=== PATIENT | female | born 1935 | race Caucasian/White ===

== ENCOUNTER 2020-10-04 06:00 | Inpatient (IN) ==
[2020-10-04] MEDS ORDERED: PIPERACILL/TAZOBAC CONSULT ACTIVE PRN (06:36)
[2020-10-04] MEDS ORDERED: PIPERACILLIN/TAZOBACTAM 4.5 GM/120 ML BAG IV ONE (06:36)
[2020-10-04] MEDS ORDERED: SODIUM CHLORIDE 0.9% 500 ML IV SCH (06:45)
[2020-10-04 06:49] LABS: Basophils # (auto) 0.02 K/uL (0-0.2); Basophils % (auto) 0.2 %; Eosinophils # (auto) 0.34 K/uL (0-0.5); Eosinophils % (auto) 3.7 %; Hematocrit (blood only) 47.6 % (37-47); Immature Granulocytes # (auto) 0.02 K/uL (0.00-0.02); Immature Granulocytes % (auto) 0.2 %; Lymphocytes # (auto) 1.56 K/uL (1.2-3.4); Lymphocytes % (auto) 17.1 %; Mean Corpuscular Hemoglobin 32.8 pg (25-34); Mean Corpuscular Hgb Conc 33.6 g/dL (32-36); Mean Corpuscular Volume 97.5 fL (80-100); Mean Platelet Volume 11.2 fL (7.4-10.4); Monocytes # (auto) 1.37 K/uL (0.11-0.59); Neutrophils % (auto) 63.8 %; Platelet Count 280 K/uL (130-400); RDW Coefficient of Variation 14.2 % (11.5-14.5); RDW Standard Deviation 50.8 fL (36.4-46.3); Red Blood Count 4.88 M/uL (4.2-5.4); White Blood Count 9.11 K/uL (4.8-10.8)
[2020-10-04 07:06] LABS: Albumin Level 3.7 gm/dl (3.4-5.0); BUN Creatinine Ratio 22.1 (10-20); Calcium 9.8 mg/dl (8.5-10.1); Creatinine Clr Calc Pharmacy 55.9 ml/min; Est GFR (African American) 72.9; Est GFR (Non-African American) 62.9; Potassium 4.7 mmol/L (3.5-5.1)
--- NOTE | 2020-10-04 07:11 | Emergency Department Note ---
History of Present Illness General Chief complaint: Fall Stated complaint: SLIPPED /FELL LT. SHOULDER PAIN Time Seen by Provider: 10/04/20 06:27 Source: patient Mode of arrival: EMS Limitations: no limitations History of Present Illness Provider complaint: Generalized weakness and falls This is a 85-year-old female with a chronic history of A. fib and is on Coumadin who presents to the ED from home where she lives with family. She is typically from [facility] but is currently living with her daughter. She has been falling frequently and her right leg is red and appears infected. The patient denies any injury related to her falls but she does have generalized weakness. She denies any headaches, chest pains or shortness of breath. No abdominal pains, nausea or vomiting. Past Med/Surg History Social History Smoking Status: Former smoker Tobacco Type: Cigarettes Preferred Language: Portuguese Review of Systems A total of 10 systems reviewed and were otherwise negative Physical Exam Vital Signs Vital Signs - 24 hr 10/04/20 06:07 10/04/20 06:11 10/04/20 06:30 Temperature 36.4 C L Temperature Source Oral Pulse Rate 61 60 83 Pulse Rate from SpO2 Sensor 66 61 72 Respiratory Rate 23 23 20 Respiratory Effort / Characteristics Non-Labored Spontaneous Respiratory Depth Normal Blood Pressure 181/67 H Blood Pressure Mean 105 Pulse Oximetry 97 96 96 Oxygen Delivery Method Room Air Sepsis New/Unexplained Change in Mental Status N/A Sepsis Action Taken by Nursing No Action Required 10/04/20 06:31 10/04/20 07:00 10/04/20 07:14 Temperature Temperature Source Pulse Rate 70 69 70 Pulse Rate from SpO2 Sensor 66 63 Respiratory Rate 23 17 23 Respiratory Effort / Characteristics Respiratory Depth Blood Pressure 179/77 H 158/74 H Blood Pressure Mean 111 102 Pulse Oximetry 93 96 93 Oxygen Delivery Method Sepsis New/Unexplained Change in Mental Status Sepsis Action Taken by Nursing 10/04/20 07:15 10/04/20 07:30 10/04/20 07:31 Temperature Temperature Source Pulse Rate 65 71 65 Pulse Rate from SpO2 Sensor 63 69 67 Respiratory Rate 15 20 20 Respiratory Effort / Characteristics Respiratory Depth Blood Pressure Blood Pressure Mean Pulse Oximetry 90 96 98 Oxygen Delivery Method Sepsis New/Unexplained Change in Mental Status Sepsis Action Taken by Nursing CONSTITUTIONAL/VITAL SIGNS: Reviewed / noted above. GENERAL: Non-toxic in appearance. INTEGUMENTARY: Warm, dry, and [place]. HEAD: Normocephalic. EYES: without scleral icterus or trauma. ENT/OROPHARYNX: clear and moist. LYMPHADENOPATHY/NECK: Is supple without lymphadenopathy or meningismus. RESPIRATORY: Lungs clear and equal. CARDIOVASCULAR: Regular rate and rhythm. GI/ABDOMEN: Soft and nontender. No organomegaly or pulsatile mass. No rebound or guarding. Normal bowel sounds. EXTREMITIES: Warm and well perfused. The patient has erythema to the right leg with some small pus filled bullae some of which are broken open. 1 of these was used for a wound culture. BACK: No CVA tenderness. No midline tenderness. NEUROLOGICAL: Intact without focal deficits. PSYCHIATRIC: normal affect. MUSCULOSKELETAL: Normally developed with good muscle tone. No obvious trauma. TRIAGE NURSING DOCUMENTATION REVIEWED. Course Administered Medications Discontinued Medications Sodium Chloride (Nss) 500 mls @ 999 mls/hr IV .Q31M TRICIA Stop: 10/04/20 07:15 Last Infusion: 10/04/20 07:36 Dose: 0 mls/hr Documented by: [id number] Admin: 10/04/20 06:59 Dose: 999 mls/hr Documented by: [id number] Piperacillin Sod/Tazobactam Sod (Zosyn) 4.5 gm in 120 mls @ 240 mls/hr IV NOW ONE Stop: 10/04/20 07:05 Last Admin: 10/04/20 07:12 Dose: 240 mls/hr Documented by: [id number] Medical Decision Making Differential Diagnosis Differential includes acute coronary syndrome, myocardial infarction, CVA, TIA, anemia, infection, pneumonia, UTI, pyelonephritis, poor nutrition, dehydration, electrolyte disturbance,hypoglycemia. Differential includes close head injury, intracranial bleed, facial trauma, cervical spine trauma, chest and thoracic trauma, abdominal and intra-abdominal trauma, spine neurologic trauma, extremity trauma. Medical Records Attestation: I reviewed the patient's medical records. Home Medications Current Medication List: was personally reviewed by me Laboratory Data Attestation: I reviewed the patient's lab results. Result diagrams: 10/04/20 06:30 10/04/20 06:30 Lab Results 10/04/20 10/04/20 10/04/20 Range/Units 06:30 06:30 07:00 WBC 9.11 (4.8-10.8) K/uL RBC 4.88 (4.2-5.4) M/uL Hgb 16.0 (12.0-16.0) g/dL Hct 47.6 H (37-47) % MCV 97.5 (80-100) fL MCH 32.8 (25-34) pg MCHC 33.6 (32-36) g/dL RDW Std Deviation 50.8 H (36.4-46.3) fL RDW Coeff of Merly 14.2 (11.5-14.5) % Plt Count 280 (130-400) K/uL MPV 11.2 H (7.4-10.4) fL Immature Gran % (Auto) 0.2 % Neut % (Auto) 63.8 % Lymph % (Auto) 17.1 % Dorado % (Auto) 15.0 % Eos % (Auto) 3.7 % Baso % (Auto) 0.2 % Neut # (Auto) 5.80 (1.4-6.5) K/uL Lymph # (Auto) 1.56 (1.2-3.4) K/uL [place] # (Auto) 1.37 H (0.11-0.59) K/uL Eos # (Auto) 0.34 (0-0.5) K/uL Baso # (Auto) 0.02 (0-0.2) K/uL Immature Gran # (Auto) 0.02 (0.00-0.02) K/uL Sodium 141 (136-145) mmol/L Potassium 4.7 (3.5-5.1) mmol/L Chloride 106 (98-107) mmol/L Carbon Dioxide 32 (21-32) mmol/L Anion Gap 3.0 (3-11) BUN 19 H (7-18) mg/dl Creatinine 0.84 (0.6-1.2) mg/dl Est Cr Clr Drug Dosing 55.9 ml/min Est GFR ( Amer) 72.9 Est GFR (Non-Af Amer) 62.9 BUN/Creatinine Ratio 22.1 H (10-20) Glucose 94 (70-99) mg/dl Lactate 2.6 H* (0.4-2.0) mmol/L Calcium 9.8 (8.5-10.1) mg/dl Total Bilirubin 1.1 H (0.2-1) mg/dl AST 38 H (15-37) U/L ALT 33 (12-78) U/L Alkaline Phosphatase 119 H (45-117) U/L Total Protein 7.9 (6.4-8.2) gm/dl Albumin 3.7 (3.4-5.0) gm/dl Globulin 4.2 H (2.5-4.0) gm/dl Albumin/Globulin Ratio 0.9 (0.9-2) TSH 2.680 (0.300-4.500) uIu/ml Imaging Data Radiologist's Impression: XR chest 1V portable CLINICAL HISTORY: weakness COMPARISON STUDY: No previous studies for comparison. FINDINGS: The heart is enlarged. There are calcified bilateral breast implants. There is no overt failure. There is no focal pulmonary consolidation. There are no pleural effusions. There is minor interstitial thickening likely chronic.[ IMPRESSION: Cardiomegaly. No evidence of failure. No evidence of focal pulmonary consolidation ECG Data Attestation: I personally reviewed and interpreted this ECG as follows: Indication: + weakness Rhythm: + atrial fibrillation ECG Intervals/blocks: + Normal QT-c ECG ST segments: no ST elevation ECG Findings: no PVCs MDM Narrative This is an 85-year-old female who presents to the ED with a chief complaint of generalized weakness and frequent falls recently. No injuries related to fall. Family noticed redness in the right leg. Patient denies any other specific complaints. She does have erythema as well as some pus filled bullae in the right lower extremity. The rest of her exam is unremarkable. Blood pressure was elevated. She is currently afebrile. Her CBC was unremarkable. Chemistry panel is unremarkable. TSH was normal. Chest x-ray did not show acute process. EKG shows A. fib. This is chronic. No old EKG for comparison. The patient was given IV Zosyn. She was given some IV fluids. She will be seen by the hospitalist for further evaluation and care. Impression & Plan Cellulitis of leg, right, Weakness Discharge Plan Visit Data Chief Complaint: Fall Stated Complaint: SLIPPED /FELL LT. SHOULDER PAIN ED Provider: Felipe Martinez Discharge Problem: Cellulitis of leg, right, Weakness Patient Disposition: Being Evaluated by Hospitalist Forms Stand Alone Forms: [facility] Referrals Referrals: PCP,NO [Primary Care Provider] -
[2020-10-04 07:16] LABS: Albumin Globulin Ratio 0.9 (0.9-2); Bilirubin,Total 1.1 mg/dl (0.2-1); Globulin 4.2 gm/dl (2.5-4.0); Thyroid Stimulating Hormone 2.68 uIu/ml (0.300-4.500); Total Protein 7.9 gm/dl (6.4-8.2)
--- NOTE | 2020-10-04 07:34 | XRay Report ---
XR chest 1V portable CLINICAL HISTORY: weakness COMPARISON STUDY: No previous studies for comparison. FINDINGS: The heart is enlarged. There are calcified bilateral breast implants. There is no overt blake lure. There is no focal pulmonary consolidation. There are no pleural effusions. There is minor inter stitial thickening likely chronic.[ IMPRESSION: Cardiomegaly. No evidence of failure. No evidence of focal pulmonary consolidation ACT 112: Negative or not required by law. Electronically signed by: Mynor Peterson M.D. 10/04/2020 7:32 AM
[2020-10-04 08:28] LABS: Partial Thromboplastin Ratio 1.2; Partial Thromboplastin Time 31.4 Seconds (21.0-31.0); Prothrombin Time 19.3 Seconds (9.0-12.0)
[2020-10-04] MEDS ORDERED: FUROSEMIDE 40 MG/4 ML VIAL IV SCH (10:18)
[2020-10-04] MEDS ORDERED: VANCOMYCIN CONSULT ACTIVE PRN (10:18)
[2020-10-04] MEDS ORDERED: ACETAMINOPHEN 325 MG TAB PO PRN (10:18)
[2020-10-04] MEDS ORDERED: ONDANSETRON INJ 2 MG/ML 2 ML VIAL IV PRN (10:18)
[2020-10-04] MEDS: FUROSEMIDE 40 MG in SYRINGE 0 ML IV SCH ×2 (10:59→16:16)
[2020-10-04] MEDS ORDERED: VANCOMYCIN HCL 2,500 MG in SODIUM CHLORIDE 0.9% 500 ML IV ONE (11:00)
--- NOTE | 2020-10-04 11:16 | Pharmacy Report ---
Pharmacy Abx Initial Consult - Date of Service October 04, 2020 - Pharmacy Dosing Scope Date of Consult: 10/04/20 Consultation requested by: Dr. Tony Copeland Pharmacy is consulted to initiate Vancomycin IV dosing therapy, order appropriate labs and adjust drug dose/frequency. - Subjective The patient is a 85 year old F admitted on 10/04/20 08:24. - Objective Height: 5 ft 3 in Weight: 105.6 kg Vital Signs (Past 12hrs): Vital Signs Temp Pulse Pulse Resp BP BP Pulse Ox 10/04/20 10:48 60 10/04/20 10:18 36.3 C L 69 20 149/71 H 97 10/04/20 09:30 67 19 95 10/04/20 09:02 56 L 17 90 10/04/20 09:01 55 L 22 156/54 H 95 10/04/20 09:00 58 L 21 95 10/04/20 08:31 61 14 98 10/04/20 08:30 60 20 147/77 H 91 10/04/20 08:02 64 22 95 10/04/20 08:01 61 18 124/55 L 93 10/04/20 08:00 60 13 95 10/04/20 07:32 63 16 92 10/04/20 07:31 65 20 98 10/04/20 07:30 71 20 96 10/04/20 07:15 65 15 90 10/04/20 07:14 70 23 158/74 H 93 10/04/20 07:00 69 17 96 10/04/20 06:31 70 23 179/77 H 93 10/04/20 06:30 83 20 96 10/04/20 06:11 60 23 96 10/04/20 06:07 36.4 C L 61 23 181/67 H 97 Lab Results (24hrs): Laboratory Tests (24 Hours) 10/04/20 10/04/20 06:30 06:30 WBC 9.11 Neut # (Auto) 5.80 Creatinine 0.84 Est Cr Clr Drug Dosing 55.9 Micro Results: 10/04/20 06:30 Gram Stain - Pending Leg,Right Wound Culture - Pending 10/04/20 06:53 Aerobic Blood Culture - Pending Blood Anaerobic Blood Culture - Pending 10/04/20 06:30 Aerobic Blood Culture - Pending Blood Anaerobic Blood Culture - Pending - Assessment & Plan Assessment 85 year old F initiated on IV Vancomycin for SST secondary to fall Pt does not meet criteria for AUC dosing nomogram based on weight/obesity. Will dose based on traditional population based PK and titrate based on trough levels Plan Vancomycin IV * Estimated PK Parameters: Vd 0.5 L/kg, Jarvis 0.051 hr-1, t1/2 13.6 hr * Loading dose: 2,500 mg (24 mg/kg) * Maintenance dose: 1,500 mg IV (15 mg/kg) every 18 hours * Goal trough level for SST : 10 to 20 mcg/mL based on c/s * Trough level ordered for 10/06/20 @ 1530 (prior to 3rd maintenance dose). This will NOT be steady state based on large BMI secondary to obesity. Further vanco accumulation likely with repeated dosing. Pharmacy will continue to follow and will adjust dose/frequency as necessary. Thank you.
--- NOTE | 2020-10-04 12:37 | History & Physical Report ---
Date of Service October 04, 2020 Assessment & Plan (1) Cellulitis of leg, right: Right lower extremity, likely due to edema. - Vancomycin - Follow skin & blood cultures from 10/04 - Wound consult entered (2) Acute heart failure: Unclear whether this is diastolic vs. systolic as we do not have an echo in the charts. - Continue furosemide 40 mg IV BID - Monitor Cr - Monitor I&Os, [facility] (3) Atrial fibrillation: Presumed permanent. In afib on admission with controlled rate. - Continue beta-richard and digoxin - Will get digoxin level with AM labs - Continue warfarin - Monitor INR (4) Hypertension: BP in the hospital is 150/70. - Continue home meds (5) Hypothyroidism: TSH was 2.6 on admission. - Continue home levothyroxine 150 mcg daily (6) Hyperlipidemia: - Continue statin (7) DVT prophylaxis: On warfarin for afib Admission and Anticipated Discharge Date Admission Date: October 04, 2020 History of Present Illness Primary Care Provider: NO PCP 85yo F w/ hx of afib, CHF and/or lymphedema, hypothyroidism, who presents with worsening leg edema and falls at home as well as cellulitis. The patient's daughter reports much of the history, though the patient is awake, alert, and pleasant & conversant. The daughter reports that the patient used to go to a lymphedema specialist who would help reduce the swelling in her legs. However, more recently, she has been unable to go due to the pandemic. Her legs have been increasingly swollen and she has had several mechanical falls in the last few days. She reports to her daughter that she feels like she just can't move her legs well. To me, she also reports orthopnea, though no at rest shortness of breath in bed at present. She denies any fevers or chills at home. No nausea or vomiting. Allergies Allergy/AdvReac Type Severity Reaction Status Date / Time No Known Allergies Allergy Unverified 10/04/20 08:24 Home Medications Medication Instructions Recorded Confirmed Type atenolol 50 mg PO BID 10/04/20 10/04/20 History digoxin 125 mcg PO DAILY 10/04/20 10/04/20 History furosemide 40 mg PO DAILY PRN 10/04/20 10/04/20 History levothyroxine 150 mcg PO DAILY 10/04/20 10/04/20 History losartan 100 mg PO DAILY 10/04/20 10/04/20 History potassium chloride 20 meq PO DAILY 10/04/20 10/04/20 History pravastatin 40 mg PO HS 10/04/20 10/04/20 History warfarin 2.5 mg PO [id number] 10/04/20 10/04/20 History Past Med/Surg History Medical History (Updated 10/04/20 @ 12:50 by Taran Copeland MD) Atrial fibrillation Heart failure Hyperlipidemia Hypertension Hypothyroidism Surgical History (Updated 10/04/20 @ 12:44 by Taran Copeland MD) H/O: hysterectomy Family History (Updated 10/04/20 @ 12:44 by Taran Copeland MD) Other Heart disease Stroke Social History Smoking Status: Former smoker Tobacco Type: Cigarettes Hx Alcohol Use: Yes Hx Substance Use: No Preferred Language: Haitian Communication Ability: Effective 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 Beliefs That Will Affect Care: None Current Living Situation: Family Other Information That Helps Us Care for You: No Feels Safe at Home: Yes Safety Concerns: Feels Safe At This Time Assistive Devices: None Review of Systems Review of Systems: All systems reviewed & are unremarkable except as noted in HPI & below Physical Exam Constitutional: WD/WN, vitals as above + acute distress and + overweight Eyes: EOM intact bilaterally; no conjunctival abnormality ENMT: external ear and nose normal, oropharynx normal Neck: trachea midline, no thyromegaly normal visual inspection Respiratory: no respiratory distress Auscultation: + crackles Cardiovascular: Rate/Rhythm: regular rate and + irregularly irregular Heart Sounds: normal S1 and normal S2 Vessels: no JVD Extremities: + edema Gastrointestinal (Abdomen): Inspection/Auscultation: abdomen normal to inspection; abdomen not distended Musculoskeletal: no cyanosis or clubbing, extremities motor strength 5/5 Skin: no rashes, warm and dry Neurologic: moves all extremities and awake Psychiatric: Orientation: alert, oriented to person and cooperative Results & Data Results & Data ([facility]) Vital Signs (Past 12 Hours) Vital Signs Temp Pulse Pulse Resp BP BP Pulse Ox 10/04/20 10:48 60 10/04/20 10:18 36.3 C L 69 20 149/71 H 97 10/04/20 09:30 67 19 95 10/04/20 09:02 56 L 17 90 10/04/20 09:01 55 L 22 156/54 H 95 10/04/20 09:00 58 L 21 95 10/04/20 08:31 61 14 98 10/04/20 08:30 60 20 147/77 H 91 10/04/20 08:02 64 22 95 10/04/20 08:01 61 18 124/55 L 93 10/04/20 08:00 60 13 95 10/04/20 07:32 63 16 92 10/04/20 07:31 65 20 98 10/04/20 07:30 71 20 96 10/04/20 07:15 65 15 90 10/04/20 07:14 70 23 158/74 H 93 10/04/20 07:00 69 17 96 10/04/20 06:31 70 23 179/77 H 93 10/04/20 06:30 83 20 96 10/04/20 06:11 60 23 96 10/04/20 06:07 36.4 C L 61 23 181/67 H 97 Code Status & VTE Plan VTE Prophylaxis Plan VTE Prophylaxis will be ordered: Yes PG Care Time/CCT Total # of Minutes Spent Total Time Spent with Patient: Total time spent is greater than 50% in coordination of care (as documented) at patient's floor/unit and/or counseling patient: Coding Level of Care Code 65131 Initial Inpt Care Lvl 3 Diagnoses Cellulitis of leg, right L03.115 Acute heart failure I50.9 Atrial fibrillation I48.91 Hypertension I10 Hypothyroidism E03.9 Hyperlipidemia E78.5 DVT prophylaxis Z29.9
[2020-10-04] MEDS: WARFARIN SOD 2.5 MG TAB PO SCH (16:04)
[2020-10-04] MEDS ORDERED: LORazepam 0.5 MG TAB PO STA (21:33)
[2020-10-04] MEDS: ATENOLOL 50 MG TABLET PO SCH (22:17)
[2020-10-04] MEDS: PRAVASTATIN SOD 40 MG TAB PO SCH (22:17)
[2020-10-05] MEDS: VANCOMYCIN HCL 1,500 MG in SODIUM CHLORIDE 0.9% 500 ML IV SCH ×3 (03:20→06:25)
[2020-10-05] MEDS ORDERED: LORazepam 1 MG TAB PO STA (04:04)
[2020-10-05] MEDS ORDERED: HALOPERIDOL LACTATE 5 MG/ML 1 ML VIAL IM PRN (04:06)
--- NOTE | 2020-10-05 05:35 | Electrocardiogram Report ---
Test Reason : Blood Pressure : / mmHG Vent. Rate : 058 BPM Atrial Rate : 045 BPM P-R Int : 000 ms QRS Dur : 080 ms QT Int : 426 ms P-R-T Axes : 000 001 004 degrees QTc Int : 418 ms Poor data quality, interpretation may be adversely affected Atrial fibrillation with slow ventricular response Possible Inferior infarct , age undetermined Possible Anterior infarct , age undetermined Abnormal ECG No previous ECGs available Confirmed by Laith Dietz ([id number]) on 10/05/2020 5:34:57 AM Referred By: Confirmed By:Laith Dietz
[2020-10-05] MEDS: LEVOTHYROXINE SODIUM 150 MCG TABLET PO SCH (05:37)
--- NOTE | 2020-10-05 05:40 | Communication Note ---
Date of Service: October 05, 2020 Subjective: I was called earlier in the night for the patient having agitation and she took 0.5 mg of Ativan which seemed to help initially. Early this morning I was called again because the patient had worsening agitation and had pulled her IV and wanted to leave the hospital. Objective: I went up to evaluate the patient and she was in the luo talking to the nurses and aids. When I spoke with her she explained that she did not want to stay here and was concerned that she was being used as a weapon and that I would, "pay for what I did when I ". She was not aggressive physically and could be redirected. A/P: I put in for 1-1, 1 mg Ativan, and made Haldol 2.5 available PRN once for agitation. The patients daughter was going to come to see her to help with reorientation and to calm her down. This appears to be delirium likely 2/2 illness, hospitalization, age and medications.
[2020-10-05 06:55] LABS: Hematocrit (blood only) 41.8 % (37-47); Mean Corpuscular Hemoglobin 32.4 pg (25-34); Mean Corpuscular Hgb Conc 33.5 g/dL (32-36); Mean Corpuscular Volume 96.8 fL (80-100); Mean Platelet Volume 11.1 fL (7.4-10.4); Platelet Count 232 K/uL (130-400); RDW Coefficient of Variation 14.3 % (11.5-14.5); RDW Standard Deviation 51.4 fL (36.4-46.3); Red Blood Count 4.32 M/uL (4.2-5.4); White Blood Count 6.43 K/uL (4.8-10.8)
[2020-10-05 07:16] LABS: BUN Creatinine Ratio 23.1 (10-20); Creatinine Clr Calc Pharmacy 46.5 ml/min; Est GFR (African American) 58.4; Est GFR (Non-African American) 50.4; Magnesium 2.1 mg/dl (1.8-2.4); Potassium 3.5 mmol/L (3.5-5.1)
[2020-10-05] MEDS ORDERED: DIGOXIN 0.125 MG TAB PO SCH (09:00)
[2020-10-05] MEDS ORDERED: POTASSIUM CHLORIDE CRTAB 20 MEQ TABCR PO SCH (09:00)
--- NOTE | 2020-10-05 09:24 | Cardiology Consultation ---
Date of Consultation October 05, 2020 Assessment & Plan (1) Cellulitis of leg, right: (2) Heart failure: (3) Atrial fibrillation: (4) Hypertension: (5) Hyperlipidemia: Volume overload. Congestive heart failure. Presumed right heart failure secondary to suspected obesity hypoventilation/sleep apnea. Assess function and valvular status via resting echocardiography (ordered). Continue cautious IV diuresis. Supplement potassium orally as ordered. Change to evidence based beta- richard therapy (See below). Obtain prior records. Atrial fibrillation. Presumed chronic/permanent. Asymptomatic. Recommend rate control. Recommend changing Atenolol to Toprol XL. Continue digoxin for now ho wever if heart rates remain slow would discontinue. She is a questionable candidate for chronic anticoagulation at the present time; would continue for now and discuss with family when available and/or when cognitive status improves. Hypertension. Labile BP noted since admission. Continue losartan. See above. Follow. Dyslipidemia. Continue statin. Supervising Physician Co-Signing Physician Notes Patient seen and examined with Eleazar Allen PA-C. Agree with findings and assessment as above. Appears to have longstanding atrial fibrillation. Unclear at this time whether or not she is an anticoagulation candidate. Medication adjustments as above. History of Present Illness Reason for Consultation: Congestive heart failure Requesting Physician: Dr. Taran Copeland Attending Physician: Dr. Taran Copeland History of Present Illness Ms. Lisseth Renae is an 85 year old female who is being evaluated today, 10/05/2020, at the request of Dr. Taran Copeland. Reason for consultation is congestive heart failure. The patient does not appear to be a reliable source of information. She is living with her daughter. She reportedly has been living in [place], [place] and is originally from [place]. She was brought to the [facility] ER via EMS following a mechanical fall with resultant left shoulder pain. She has had frequent falls. Her right (more than left) lower extremity was notably swollen and red, without reported pain. She denies fevers or chills. She has healing ecchymosis on her face though denies injury, headache, visual changes, unilateral weakness. She denies history of congestive heart failure. She denies history of MD, CAD, heart murmur, rheumatic fever, or scarlet fever. She denies chest pain, palpitations, or dyspnea. She denies melena or hematochezia. Past Medical & Surgical History: Chronic atrial fibrillation. She is anticoagulated with Coumadin. Chart history of congestive heart failure Lymphedema Dyslipidemia Hypothyroidism Family History: Positive for CAD in her parents however she cannot give me any more details. Social History: Nonsmoker. No alcohol. No illegal drug use. Living with her daughter. Originally from [place]. Data: Telemetry: Atrial fibrillation ranging from 37 bpm to a high of 88 bpm. Heart rates typically in the 50's. EKG dated 24-SEP-2020 at 06:09:51: Poor data quality, interpretation may be adversely affected. Atrial fibrillation with slow ventricular response (58 bpm). Possible Inferior infarct. Possible Anterior infarct. CXR: Cardiomegaly. No evidence of failure. No significant pleural fluid. No evidence of focal pulmonary consolidation. Labs: See below. Allergies Allergy/AdvReac Type Severity Reaction Status Date / Time No Known Allergies Allergy Unverified 10/04/20 08:24 Home Medications Medication Instructions Recorded Confirmed Type atenolol 50 mg PO BID 10/04/20 10/04/20 History digoxin 125 mcg PO DAILY 10/04/20 10/04/20 History furosemide 40 mg PO DAILY PRN 10/04/20 10/04/20 History levothyroxine 150 mcg PO DAILY 10/04/20 10/04/20 History losartan 100 mg PO DAILY 10/04/20 10/04/20 History potassium chloride 20 meq PO DAILY 10/04/20 10/04/20 History pravastatin 40 mg PO HS 10/04/20 10/04/20 History warfarin 2.5 mg PO [id number] 10/04/20 10/04/20 History Patient History Medical History Atrial fibrillation Heart failure Hyperlipidemia Hypertension Hypothyroidism Surgical History H/O: hysterectomy Family History Other Heart disease Stroke Social History Smoking Status: Former smoker Tobacco Type: Cigarettes Hx Alcohol Use: Yes Hx Substance Use: No Preferred Language: Costa Rican Communication Ability: Effective 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 PER: PER. Conjunctiva pink, sclera clear. HENT: Healing ecchymosis around the right orbit. Normocephalic. Neck: No carotid bruits. No overt JVD. Heart: Irregularly irregular. Somewhat distant heart failure. PMI seems to be displaced laterally. No rub. No gallop. Lungs: Diiminished anterolaterally however clear to auscultation. Abdomen: +BS. Soft. Nontender. No masses or organomegaly. Extremities: The right lower extremity is erythematous. It has 2+ edema. No cyanosis. No clubbing. The left lower extremity has mild erythema. It has 1-2+ edema. No clubbing or cyanosis on the left. Pulses: radial=2/4, posterior tibial=0/4. Neuro: Alert to person but not to place or time. Results & Data ([facility]) Vital Signs (Past 12 Hours) Vital Signs Temp Pulse Pulse Resp BP Pulse Ox 10/05/20 07:50 36.7 C 57 L 16 148/78 H 100 10/05/20 04:28 82 10/04/20 23:38 36.9 C 72 20 118/70 92 (1) Heart failure Heart failure chronicity: acute Heart failure type: unspecified Qualified Code(s): I50.9 - Heart failure, unspecified (2) Atrial fibrillation Atrial fibrillation type: unspecified chronic Qualified Code(s): I48.20 - Chronic atrial fibrillation, unspecified (3) Hyperlipidemia Hyperlipidemia type: mixed hyperlipidemia Qualified Code(s): E78.2 - Mixed hyperlipidemia (4) Hypertension Hypertension type: essential hypertension Qualified Code(s): I10 - Essential (primary) hypertension
[2020-10-05] MEDS ORDERED: POTASSIUM CHLORIDE CRTAB 20 MEQ TABCR PO ONE (09:25)
[2020-10-05] MEDS: FUROSEMIDE 40 MG in SYRINGE 0 ML IV SCH ×2 (09:54→16:33)
[2020-10-05] MEDS: LOSARTAN POTASSIUM 50 MG TAB PO SCH (09:54)
[2020-10-05] MEDS: ATENOLOL 50 MG TABLET PO SCH (09:54)
--- NOTE | 2020-10-05 10:54 | Hospitalist Progress Note ---
Date of Service October 05, 2020 Assessment & Plan (1) Cellulitis of leg, right: Right lower extremity, likely due to edema. - Vancomycin - Follow skin & blood cultures from 10/04 -> Skin (pustule) culture growing Group B Strep. Will continue vanc x 1 more day, but then possibly switch to Ke flex if no other cultures positive. - Wound consult entered (2) Acute heart failure: Unclear whether this is diastolic vs. systolic as we do not have an echo in the charts. - Continue furosemide 40 mg IV BID - Monitor Cr -> Up slightly today; monitor. - Monitor I&Os, weights -> Looks to be net even from her vanc IV and PO intake from yesterday. If no improvement today, will increase dose of Lasix. - [facility] cardiology consulted for further recs -> Echo ordered for today. (3) Atrial fibrillation: Presumed chronic afib. In afib on admission with controlled rate. - Has been bradycardic while here. - Switch atenolol to Toprol XL per cardiology recs - Hold digoxin - Continue warfarin - Monitor INR (4) Hypertension: BP in the hospital is 150/70. - Continue home meds (5) Hypothyroidism: TSH was 2.6 on admission. - Continue home levothyroxine 150 mcg daily (6) Hyperlipidemia: - Continue statin (7) DVT prophylaxis: On warfarin for afib Admission and Anticipated Discharge Date Admission Date: October 04, 2020 Subjective Difficult night with lots of agitation and confusion. This morning, more tired. Breathing more comfortably. Legs are no less swollen than yesterday. Reports no fevers/chills, chest pain, shortness of breath, abdominal pain, nausea, or vomiting. Physical Exam Constitutional: WD/WN, vitals as above + acute distress and + overweight Eyes: EOM intact bilaterally; no conjunctival abnormality ENMT: external ear and nose normal, oropharynx normal Neck: trachea midline, no thyromegaly normal visual inspection Respiratory: no respiratory distress Auscultation: + crackles Cardiovascular: Rate/Rhythm: regular rate and + irregularly irregular Heart Sounds: normal S1 and normal S2 Vessels: no JVD Extremities: + edema Gastrointestinal (Abdomen): Inspection/Auscultation: abdomen normal to inspection; abdomen not distended Musculoskeletal: no cyanosis or clubbing, extremities motor strength 5/5 Skin: no rashes, warm and dry + induration (Right crenshaw with pustules); no fluctulance Neurologic: moves all extremities and awake Psychiatric: Orientation: alert, oriented to person and cooperative Results & Data Results & Data ([facility]) Vital Signs (Past 12 Hours) Vital Signs Temp Pulse Pulse Resp BP Pulse Ox 10/05/20 07:50 36.7 C 57 L 16 148/78 H 100 10/05/20 04:28 82 10/04/20 23:38 36.9 C 72 20 118/70 92 PG Care Time/CCT Total # of Minutes Spent Total Time Spent with Patient: Total time spent is greater than 50% in coordination of care (as documented) at patient's floor/unit and/or counseling patient: Coding Level of Care Code 73430 Subseq Hosp Care Lvl 2 Diagnoses Cellulitis of leg, right L03.115 Acute heart failure I50.9 Atrial fibrillation I48.20 Atrial fibrillation type: unspecified chronic Hypertension I10 Hypertension type: essential hypertension Hypothyroidism E03.9 Hyperlipidemia E78.2 Hyperlipidemia type: mixed hyperlipidemia DVT prophylaxis Z29.9 (1) Atrial fibrillation Atrial fibrillation type: unspecified chronic Qualified Code(s): I48.20 - Chronic atrial fibrillation, unspecified (2) Hypertension Hypertension type: essential hypertension Qualified Code(s): I10 - Essential (primary) hypertension (3) Hyperlipidemia Hyperlipidemia type: mixed hyperlipidemia Qualified Code(s): E78.2 - Mixed hyperlipidemia
[2020-10-05] MEDS: WARFARIN SOD 2.5 MG TAB PO SCH (16:33)
[2020-10-05] MEDS: POTASSIUM CHLORIDE CRTAB 20 MEQ TABCR PO SCH (20:10)
[2020-10-05] MEDS: PRAVASTATIN SOD 40 MG TAB PO SCH (20:10)
[2020-10-05] MEDS ORDERED: METOPROLOL SUCC 50MG EXT REL TAB PO SCH (21:00)
[2020-10-06] MEDS ORDERED: LORazepam 1 MG/2 ML VIAL IV PRN (00:08)
[2020-10-06] MEDS ORDERED: HALOPERIDOL LACTATE 5 MG/ML 1 ML VIAL IM PRN (00:08)
[2020-10-06] MEDS ORDERED: HALOPERIDOL LACTATE 5 MG/ML 1 ML VIAL ONE (00:10)
--- NOTE | 2020-10-06 02:42 | Communication Note ---
Date of Service: October 06, 2020 Nursing paged around 10-11 pm that the patient was again agitated and threatening staff. I went to the room, patient did not remember me from the night before. She was frustrated and despite multiple efforts to redirect her she continued to threaten to hit me. She did not have any specific complaint or issue that we could work to address. I ordered Haldol 2.5 mg and Ativan 1 mg as PRN medications. The patient again was agitated and barricaded herself in her room but was redirected to her bed and appeared to have calmed down after receiving Haldol. If she becomes agitated again we will attempt to notify the daughter to help to redirect the patient if necessary. Resident Activity Tracking Resident Involvement: Resident Care Provided Care Provided: Adult [facility] Medicine CBC Results Results Complete Blood Count Results: RBC 4.32 M/uL (4.2-5.4) 10/05/20 WBC 6.43 K/uL (4.8-10.8) 10/05/20 Hgb 14.0 g/dL (12.0-16.0) 10/05/20 Hct 41.8 % (37-47) 10/05/20 Plt Count 232 K/uL (130-400) 10/05/20 Chemistry (BMP) Results BMP Results: Sodium 145 mmol/L (136-145) 10/05/20 Potassium 3.5 mmol/L (3.5-5.1) 10/05/20 Chloride 108 mmol/L (98-107) H 10/05/20 BUN 23 mg/dl (7-18) H 10/05/20 Creatinine 1.01 mg/dl (0.6-1.2) 10/05/20 Glucose 89 mg/dl (70-99) 10/05/20
[2020-10-06] MEDS: VANCOMYCIN HCL 1,500 MG in SODIUM CHLORIDE 0.9% 500 ML IV SCH (03:27)
[2020-10-06] MEDS: LEVOTHYROXINE SODIUM 150 MCG TABLET PO SCH (05:41)
[2020-10-06 06:25] LABS: Hematocrit (blood only) 42.1 % (37-47); Hemoglobin 14.1 g/dL (12.0-16.0); Mean Corpuscular Hemoglobin 32.6 pg (25-34); Mean Corpuscular Hgb Conc 33.5 g/dL (32-36); Mean Corpuscular Volume 97.2 fL (80-100); Platelet Count 242 K/uL (130-400); RDW Coefficient of Variation 14.3 % (11.5-14.5); RDW Standard Deviation 50.9 fL (36.4-46.3); Red Blood Count 4.33 M/uL (4.2-5.4); White Blood Count 7.88 K/uL (4.8-10.8)
[2020-10-06 07:06] LABS: BUN Creatinine Ratio 28.2 (10-20); Calcium 9.6 mg/dl (8.5-10.1); Creatinine Clr Calc Pharmacy 56.2 ml/min; Est GFR (African American) 72.9; Est GFR (Non-African American) 62.9; Magnesium 2.1 mg/dl (1.8-2.4); Potassium 3.9 mmol/L (3.5-5.1)
[2020-10-06] MEDS: POTASSIUM CHLORIDE CRTAB 20 MEQ TABCR PO SCH ×2 (08:46→20:01)
[2020-10-06] MEDS: METOPROLOL SUCC 50MG EXT REL TAB PO SCH (08:47)
[2020-10-06] MEDS: LOSARTAN POTASSIUM 50 MG TAB PO SCH (08:47)
[2020-10-06] MEDS: FUROSEMIDE 40 MG in SYRINGE 0 ML IV SCH ×2 (08:48→17:39)
[2020-10-06] MEDS ORDERED: amLODIPine BESYLATE 5 MG TAB PO ONE (12:00)
--- NOTE | 2020-10-06 12:39 | Cardiology Progress Note ---
Date of Service October 06, 2020 Assessment & Plan (1) Cellulitis of leg, right: (2) Heart failure: (3) Atrial fibrillation: (4) Hypertension: (5) Hyperlipidemia: Volume overload. Congestive heart failure. Presumed right heart failure secondary to suspected obesity hypoventilation/sleep apnea. Continue cautious IV diuresis. Supplement potassium orally as ordered. will hold after pm dose today and follow volume status clinically Atrial fibrillation. Presumed chronic/permanent. Asymptomatic. Recommend rate control. Good response to metoprolol succinate, will continue. Continue digoxin for now however if heart rates remain slow would discontinue. She is a questionable candidate for chronic anticoagulation at the present time; would continue for now and discuss with family when available and/or when cognitive status improves. Hypertension. Labile BP noted since admission. Continue losartan. will add amlodipine today Dyslipidemia. Continue statin. (6) Restrictive cardiomyopathy: (7) Aortic regurgitation: (8) Tricuspid regurgitation: Admission and Anticipated Discharge Date Admission Date: October 04, 2020 Subjective Patient seen and examined, chart reviewed. Patient states that she is currently very fatigued but otherwise feeling well. Denies chest pain, shortness of breath, palpitations, lightheadedness, dizziness or syncope. Telemetry reviewed: Atrial fibrillation with variable rate response 50s to 80s Review of Systems Review of Systems: All systems reviewed & are unremarkable except as noted in HPI & below Physical Exam Physical Exam: General: Awake, alert and oriented x 3. No acute distress. HEENT: Normocephalic, atraumatic. Pupils equal, round and reactive to light and accommodation. Extraocular muscles are intact. Anicteric sclera. Moist mucous membranes. Neck: No JVD. No bruit. Cardiovascular: irregularly irregular, unable to appreciate murmur, rub or gallop. Pulmonary: Clear to auscultation bilaterally. No rales, rhonchi, or wheezing. Abdomen: Bowel sounds x 4, soft. No rebound, guarding or tenderness. No organomegaly. Extremities: No clubbing, cyanosis or edema. +2 pedal pulses bilaterally. Skin: Warm and dry. Results & Data ([facility]) Vital Signs (Past 12 Hours) Vital Signs Temp Pulse Pulse Resp BP Pulse Ox 10/06/20 08:46 56 L 10/06/20 08:25 53 L 10/06/20 08:17 36.8 C 94 H 18 174/84 H 93 10/06/20 07:00 56 L 10/06/20 03:25 75 161/84 H 10/06/20 03:15 36.4 C L 71 20 195/71 H 96 (1) Heart failure Heart failure type: unspecified Heart failure chronicity: acute Qualified Code(s): I50.9 - Heart failure, unspecified (2) Atrial fibrillation Atrial fibrillation type: unspecified chronic Qualified Code(s): I48.20 - Chronic atrial fibrillation, unspecified (3) Hypertension Hypertension type: essential hypertension Qualified Code(s): I10 - Essential (primary) hypertension (4) Hyperlipidemia Hyperlipidemia type: mixed hyperlipidemia Qualified Code(s): E78.2 - Mixed hyperlipidemia
[2020-10-06] MEDS ORDERED: VANCOMYCIN TROUGH ONE (15:30)
[2020-10-06] MEDS: WARFARIN SOD 2.5 MG TAB PO SCH (17:40)
[2020-10-06] MEDS: OLANZAPINE 2.5 MG TAB PO SCH (20:00)
[2020-10-06] MEDS: PRAVASTATIN SOD 40 MG TAB PO SCH (20:00)
--- NOTE | 2020-10-06 21:29 | Hospitalist Progress Note ---
Date of Service October 06, 2020 Assessment & Plan (1) Cellulitis of leg, right: Right lower extremity, likely due to edema. -Patient continues to require furosemide. - Vancomycin - Follow skin & blood cultures from 10/04 -> Skin (pustule) culture growing Group B Strep. Will continue vanc x 1 more day, but then possibly switch to Keflex if no other cultures positive. - Wound consult entered - will contiue to monitor. (2) Acute heart failure: Unclear whether this is diastolic vs. systolic as we do not have an echo in the charts. - Continue furosemide 40 mg IV BID - Monitor Cr -> Up slightly today; monitor. - Monitor I&Os, weights -> Looks to be net even from her vanc IV and PO intake from yesterday. If no improvement today, will increase dose of Lasix. - [facility] cardiology consulted for further recs -> Echo ordered appreciate input.. (3) Atrial fibrillation: Presumed chronic afib. In afib on admission with controlled rate. - Has been bradycardic while here. - Switch atenolol to Toprol XL per cardiology recs - Hold digoxin - Continue warfarin - Monitor INR (4) Hypertension: BP in the hospital is 150/70. - Continue home meds (5) Hypothyroidism: TSH was 2.6 on admission. - Continue home levothyroxine 150 mcg daily (6) Hyperlipidemia: - Continue statin (7) DVT prophylaxis: On warfarin for afib (8) Acute delirium: Appears patient has been confused while here. And she gets more aggressive overnight Will order olanzapine and monitor. Admission and Anticipated Discharge Date Admission Date: October 04, 2020 Subjective 85 yo female reports no new symptoms. She is very anxious today and aggressive. Review of Systems Review of Systems: All systems reviewed & are unremarkable except as noted in HPI & below Physical Exam Physical Exam: Constitutional: WD/WN, vitals as above + acute distress and + overweight Eyes: EOM intact bilaterally; no conjunctival abnormality ENMT: external ear and nose normal, oropharynx normal Neck: trachea midline, no thyromegaly normal visual inspection Respiratory: no respiratory distress Auscultation: + crackles Cardiovascular: Rate/Rhythm: regular rate and + irregularly irregular Heart Sounds: normal S1 and normal S2 Vessels: no JVD Extremities: + edema Gastrointestinal (Abdomen): Inspection/Auscultation: abdomen normal to inspection; abdomen not distended Musculoskeletal: no cyanosis or clubbing, extremities motor strength 5/5 Skin: no rashes, warm and dry + induration (Right crenshaw with pustules); no fluctulance Neurologic: moves all extremities and awake Psychiatric: Orientation: alert, oriented to person and cooperative Results & Data Results & Data ([facility]) Vital Signs (Past 12 Hours) Vital Signs Temp Pulse Pulse Resp BP Pulse Ox 10/06/20 20:05 36.5 C 80 20 135/71 95 10/06/20 16:00 58 L 10/06/20 15:00 87 PG Care Time/CCT Total # of Minutes Spent Total Time Spent with Patient: Total time spent is greater than 50% in coordination of care (as documented) at patient's floor/unit and/or counseling patient: Coding Level of Care Code 15833 Subseq Hosp Care Lvl 3 Diagnoses Cellulitis of leg, right L03.115 Acute heart failure I50.9 Atrial fibrillation I48.20 Atrial fibrillation type: unspecified chronic Hypertension I10 Hypertension type: essential hypertension Hypothyroidism E03.9 Hyperlipidemia E78.2 Hyperlipidemia type: mixed hyperlipidemia DVT prophylaxis Z29.9 Acute delirium R41.0 Time Spent (min) 35 (1) Atrial fibrillation Atrial fibrillation type: unspecified chronic Qualified Code(s): I48.20 - Chronic atrial fibrillation, unspecified (2) Hyperlipidemia Hyperlipidemia type: mixed hyperlipidemia Qualified Code(s): E78.2 - Mixed hyperlipidemia (3) Hypertension Hypertension type: essential hypertension Qualified Code(s): I10 - Essential (primary) hypertension
[2020-10-07] MEDS ORDERED: VANCOMYCIN TROUGH ONE (03:30)
[2020-10-07 03:44] LABS: Hematocrit (blood only) 43.3 % (37-47); Hemoglobin 14.5 g/dL (12.0-16.0); Mean Corpuscular Hemoglobin 32.4 pg (25-34); Mean Corpuscular Hgb Conc 33.5 g/dL (32-36); Mean Corpuscular Volume 96.9 fL (80-100); Mean Platelet Volume 10.4 fL (7.4-10.4); Platelet Count 248 K/uL (130-400); RDW Coefficient of Variation 14.3 % (11.5-14.5); RDW Standard Deviation 50.7 fL (36.4-46.3); Red Blood Count 4.47 M/uL (4.2-5.4); White Blood Count 7.65 K/uL (4.8-10.8)
[2020-10-07] MEDS: VANCOMYCIN HCL 1,500 MG in SODIUM CHLORIDE 0.9% 500 ML IV SCH (03:50)
[2020-10-07 04:01] LABS: BUN Creatinine Ratio 21.6 (10-20); Calcium 9.1 mg/dl (8.5-10.1); Creatinine Clr Calc Pharmacy 50.7 ml/min; Est GFR (African American) 64.5; Est GFR (Non-African American) 55.6; Potassium 4.1 mmol/L (3.5-5.1)
[2020-10-07] MEDS: LEVOTHYROXINE SODIUM 150 MCG TABLET PO SCH (06:05)
[2020-10-07] MEDS ORDERED: amLODIPine BESYLATE 5 MG TAB PO SCH (09:00)
[2020-10-07] MEDS: METOPROLOL SUCC 50MG EXT REL TAB PO SCH (09:55)
[2020-10-07] MEDS: FUROSEMIDE 40 MG in SYRINGE 0 ML IV SCH ×2 (09:55→16:12)
[2020-10-07] MEDS: POTASSIUM CHLORIDE CRTAB 20 MEQ TABCR PO SCH ×2 (09:56→20:20)
[2020-10-07] MEDS: LOSARTAN POTASSIUM 50 MG TAB PO SCH (09:56)
--- NOTE | 2020-10-07 13:00 | Cardiology Progress Note ---
Date of Service October 07, 2020 Assessment & Plan (1) Cellulitis of leg, right: (2) Heart failure: (3) Atrial fibrillation: (4) Hypertension: (5) Hyperlipidemia: Volume overload. Congestive heart failure. Presumed right heart failure secondary to suspected obesity hypoventilation/sleep apnea. No significant further diuresis. We will discontinue IV diuretics and start daily torsemide 20 mg. Atrial fibrillation. Presumed chronic/permanent. Asymptomatic. Recommend rate control. Good response to metoprolol succinate, will continue. Continue digoxin for now however if heart rates remain slow would discontinue. She is a questionable candidate for chronic anticoagulation at the present time; would continue for now and discuss with family when available and/or when cognitive status improves. Hypertension. Labile BP noted since admission. Continue losartan. will increase amlodipine to 10 mg daily Dyslipidemia. Continue statin. (6) Restrictive cardiomyopathy: (7) Aortic regurgitation: (8) Tricuspid regurgitation: Admission and Anticipated Discharge Date Admission Date: October 04, 2020 Subjective Continues to deny any cardiac complaints of chest pain, shortness of breath, palpitations, lightheadedness, dizziness or syncope. Patient seen and examined, chart reviewed. Telemetry reviewed: Atrial fibrillation rate controlled. Review of Systems Review of Systems: All systems reviewed & are unremarkable except as noted in HPI & below Physical Exam Physical Exam: General: Awake, alert and oriented x 3. No acute distress. HEENT: Normocephalic, atraumatic. Pupils equal, round and reactive to light and accommodation. Extraocular muscles are intact. Anicteric sclera. Moist mucous membranes. Neck: No JVD. No bruit. Cardiovascular: irregularly irregular, unable to appreciate murmur, rub or gallop. Pulmonary: Clear to auscultation bilaterally. No rales, rhonchi, or wheezing. Abdomen: Bowel sounds x 4, soft. No rebound, guarding or tenderness. No organomegaly. Extremities: No clubbing, cyanosis or edema. +2 pedal pulses bilaterally. Skin: Warm and dry. Results & Data ([facility]) Vital Signs (Past 12 Hours) Vital Signs Temp Pulse Pulse Resp BP Pulse Ox 10/07/20 11:23 36.7 C 78 16 179/76 H 90 10/07/20 07:34 57 L 10/07/20 07:31 36.2 C L 83 18 179/71 H 94 10/07/20 03:21 36.5 C 81 12 170/73 H 92 (1) Heart failure Heart failure chronicity: acute Heart failure type: unspecified Qualified Code(s): I50.9 - Heart failure, unspecified (2) Atrial fibrillation Atrial fibrillation type: unspecified chronic Qualified Code(s): I48.20 - Chronic atrial fibrillation, unspecified (3) Hyperlipidemia Hyperlipidemia type: mixed hyperlipidemia Qualified Code(s): E78.2 - Mixed hyperlipidemia (4) Hypertension Hypertension type: essential hypertension Qualified Code(s): I10 - Essential (primary) hypertension
[2020-10-07] MEDS ORDERED: amLODIPine BESYLATE 5 MG TAB PO ONE (13:30)
[2020-10-07] MEDS: cephALEXin 250 MG CAP PO SCH ×3 (13:54→20:20)
--- NOTE | 2020-10-07 15:18 | Hospitalist Progress Note ---
Date of Service October 07, 2020 Assessment & Plan (1) Cellulitis of leg, right: Right lower extremity, likely due to edema. -Patient continues to require furosemide. - Vancomycin - Follow skin & blood cultures from 10/04 -> Skin (pustule) culture growing Group B Strep. Will continue vanc x 1 more day, but then possibly switch to Keflex if no other cultures positive. - Wound consult entered - will contiue to monitor. cultures do not show any signs of MRSA. will trantions to cephalexin. (2) Acute heart failure: Unclear whether this is diastolic vs. systolic as we do not have an echo in the charts. - Continue furosemide 40 mg IV BID - Monitor Cr -> Up slightly today; monitor. - Monitor I&Os, weights -> Looks to be net even from her vanc IV and PO intake from yesterday. If no improvement today, will increase dose of Lasix. - [facility] cardiology consulted for further recs -> Echo ordered appreciate input.. (3) Atrial fibrillation: Presumed chronic afib. In afib on admission with controlled rate. - Has been bradycardic while here. - Switch atenolol to Toprol XL per cardiology recs - Hold digoxin - Continue warfarin - Monitor INR (4) Hypertension: BP in the hospital is 150/70. - Continue home meds (5) Hypothyroidism: TSH was 2.6 on admission. - Continue home levothyroxine 150 mcg daily (6) Hyperlipidemia: - Continue statin (7) DVT prophylaxis: On warfarin for afib Patient requires head of the bed to be elevated to 30 degrees and requires frequenct repositioning not able to be obtained in a standard bed. (8) Acute delirium: Appears patient has been confused while here. And she gets more aggressive overnight. Howeer this past night, no issues after taking olanzapine. will monitor. Admission and Anticipated Discharge Date Admission Date: October 04, 2020 Subjective 85 yo male reports no new complaints. She is calm at this time. Review of Systems Review of Systems: All systems reviewed & are unremarkable except as noted in HPI & below Physical Exam Physical Exam: Constitutional: WD/WN, vitals as above in no distress + overweight Eyes: EOM intact bilaterally; no conjunctival abnormality ENMT: external ear and nose normal, oropharynx normal Neck: trachea midline, no thyromegaly normal visual inspection Respiratory: no respiratory distress Auscultation: + crackles Cardiovascular: Rate/Rhythm: regular rate and + irregularly irregular Heart Sounds: normal S1 and normal S2 Vessels: no JVD Extremities: + edema Gastrointestinal (Abdomen): Inspection/Auscultation: abdomen normal to inspection; abdomen not distended Musculoskeletal: no cyanosis or clubbing, extremities motor strength 5/5 Skin: no rashes, warm and dry + induration (Right crenshaw with pustules); no fluctulance Neurologic: moves all extremities and awake Psychiatric: Orientation: alert, oriented to person and cooperative Results & Data Results & Data ([facility]) Vital Signs (Past 12 Hours) Vital Signs Temp Pulse Pulse Resp BP Pulse Ox 10/07/20 11:23 36.7 C 78 16 179/76 H 90 10/07/20 07:34 57 L 10/07/20 07:31 36.2 C L 83 18 179/71 H 94 10/07/20 03:21 36.5 C 81 12 170/73 H 92 PG Care Time/CCT Total # of Minutes Spent Total Time Spent with Patient: Total time spent is greater than 50% in coordination of care (as documented) at patient's floor/unit and/or counseling patient: Coding Level of Care Code 44529 Subseq Hosp Care Lvl 2 Diagnoses Cellulitis of leg, right L03.115 Acute heart failure I50.9 Atrial fibrillation I48.20 Atrial fibrillation type: unspecified chronic Hypertension I10 Hypertension type: essential hypertension Hypothyroidism E03.9 Hyperlipidemia E78.2 Hyperlipidemia type: mixed hyperlipidemia DVT prophylaxis Z29.9 Acute delirium R41.0 (1) Atrial fibrillation Atrial fibrillation type: unspecified chronic Qualified Code(s): I48.20 - Chronic atrial fibrillation, unspecified (2) Hyperlipidemia Hyperlipidemia type: mixed hyperlipidemia Qualified Code(s): E78.2 - Mixed hyperlipidemia (3) Hypertension Hypertension type: essential hypertension Qualified Code(s): I10 - Essential (primary) hypertension
[2020-10-07] MEDS: OLANZAPINE 2.5 MG TAB PO SCH (20:20)
[2020-10-07] MEDS: PRAVASTATIN SOD 40 MG TAB PO SCH (20:20)
[2020-10-08 06:03] LABS: Hematocrit (blood only) 43.3 % (37-47); Hemoglobin 14.1 g/dL (12.0-16.0); Mean Corpuscular Hemoglobin 32.5 pg (25-34); Mean Corpuscular Hgb Conc 32.6 g/dL (32-36); Mean Corpuscular Volume 99.8 fL (80-100); Mean Platelet Volume 10.9 fL (7.4-10.4); Platelet Count 278 K/uL (130-400); RDW Coefficient of Variation 14.3 % (11.5-14.5); Red Blood Count 4.34 M/uL (4.2-5.4); White Blood Count 7.76 K/uL (4.8-10.8)
[2020-10-08] MEDS: LEVOTHYROXINE SODIUM 150 MCG TABLET PO SCH (06:12)
[2020-10-08 06:33] LABS: BUN Creatinine Ratio 20.8 (10-20); Calcium 9.1 mg/dl (8.5-10.1); Creatinine Clr Calc Pharmacy 45.9 ml/min; Est GFR (African American) 58.4; Est GFR (Non-African American) 50.4; Potassium 3.7 mmol/L (3.5-5.1)
[2020-10-08] MEDS: cephALEXin 250 MG CAP PO SCH ×3 (08:48→16:21)
[2020-10-08] MEDS: POTASSIUM CHLORIDE CRTAB 20 MEQ TABCR PO SCH (08:48)
[2020-10-08] MEDS: METOPROLOL SUCC 50MG EXT REL TAB PO SCH (08:48)
[2020-10-08] MEDS: LOSARTAN POTASSIUM 50 MG TAB PO SCH (08:48)
[2020-10-08] MEDS: FUROSEMIDE 40 MG in SYRINGE 0 ML IV SCH (08:49)
[2020-10-08] MEDS ORDERED: amLODIPine BESYLATE 5 MG TAB PO SCH (09:00)
--- NOTE | 2020-10-08 14:08 | Ultrasound Report ---
US ankle/brachial index comp CLINICAL HISTORY: increased cap refill COMPARISON STUDY: None. FINDINGS: Bilateral ankle brachial indices were attempted but not completed due to the patient's extr emity pain during inflation of the cuff. IMPRESSION: Nondiagnostic evaluation. ACT 112: Negative or not required by law. Electronically signed by: Gregorio Anglin M.D. 10/08/2020 2:06 PM
--- NOTE | 2020-10-08 14:54 | Cardiology Progress Note ---
Date of Service October 08, 2020 Assessment & Plan (1) Cellulitis of leg, right: (2) Heart failure: (3) Atrial fibrillation: (4) Hypertension: (5) Hyperlipidemia: Volume overload. Congestive heart failure. Presumed right heart failure secondary to suspected obesity hypoventilation/sleep apnea. No significant further diuresis. We will discontinue IV diuretics and start daily torsemide 20 mg. Atrial fibrillation. Presumed chronic/permanent. Asymptomatic. Recommend rate control. Good response to metoprolol succinate, will continue. Continue digoxin for now however if heart rates remain slow would discontinue. She is a questionable candidate for chronic anticoagulation at the present time; would continue for now and discuss with family when available and/or when cognitive status improves. Hypertension. Labile BP noted since admission. Continue losartan. will increase amlodipine to 10 mg daily Dyslipidemia. Continue statin. ok to d/c from cardiac standpoint (6) Restrictive cardiomyopathy: (7) Aortic regurgitation: (8) Tricuspid regurgitation: Admission and Anticipated Discharge Date Admission Date: October 04, 2020 Subjective Patient seen and examined, chart reviewed. Nursing reports patient becoming progressively agitated and confused overnight. Did not voice any complaints of chest pain, shortness of breath, palpitations, lightheadedness, dizziness or syncope. Telemetry reviewed: A. fib with controlled ventricular response. Review of Systems Review of Systems: All systems reviewed & are unremarkable except as noted in HPI & below Physical Exam Physical Exam: General: Awake, alert and oriented x 3. No acute distress. HEENT: Normocephalic, atraumatic. Pupils equal, round and reactive to light and accommodation. Extraocular muscles are intact. Anicteric sclera. Moist mucous membranes. Neck: No JVD. No bruit. Cardiovascular: irregularly irregular, unable to appreciate murmur, rub or gallop. Pulmonary: Clear to auscultation bilaterally. No rales, rhonchi, or wheezing. Abdomen: Bowel sounds x 4, soft. No rebound, guarding or tenderness. No organomegaly. Extremities: No clubbing, cyanosis or edema. +2 pedal pulses bilaterally. Skin: Warm and dry. Results & Data ([facility]) Vital Signs (Past 12 Hours) Vital Signs Temp Pulse Pulse Resp BP Pulse Ox 10/08/20 13:58 36.4 C L 79 20 172/79 H 93 10/08/20 11:13 36.4 C L 79 20 172/79 H 93 10/08/20 08:46 72 135/58 L 10/08/20 08:00 47 L 10/08/20 07:36 36.5 C 73 18 186/78 H 97 (1) Heart failure Heart failure chronicity: acute Heart failure type: unspecified Qualified Code(s): I50.9 - Heart failure, unspecified (2) Atrial fibrillation Atrial fibrillation type: unspecified chronic Qualified Code(s): I48.20 - Chronic atrial fibrillation, unspecified (3) Hyperlipidemia Hyperlipidemia type: mixed hyperlipidemia Qualified Code(s): E78.2 - Mixed hyperlipidemia (4) Hypertension Hypertension type: essential hypertension Qualified Code(s): I10 - Essential (primary) hypertension
[2020-10-08] MEDS: WARFARIN SOD 2.5 MG TAB PO SCH (16:20)
[2020-10-09] MEDS ORDERED: TORSEMIDE 10 MG TAB PO SCH (09:00)
--- NOTE | 2020-10-15 09:29 | Discharge Summary ---
Date of Service October 08, 2020 Admission HPI Per Admitting Provider 85yo F w/ hx of afib, CHF and/or lymphedema, hypothyroidism, who presents with worsening leg edema and falls at home as well as cellulitis. The patient's daughter reports much of the history, though the patient is awake, alert, and pleasant & conversant. The daughter reports that the patient used to go to a lymphedema specialist who would help reduce the swelling in her legs. However, more recently, she has been unable to go due to the pandemic. Her legs have been increasingly swollen and she has had several mechanical falls in the last few days. She reports to her daughter that she feels like she just can't move her legs well. To me, she also reports orthopnea, though no at rest shortness of breath in bed at present. She denies any fevers or chills at home. No nausea or vomiting. Principal Diagnosis cellulitis of right leg Discharge Exam Constitutional: WD/WN, vitals as above in no distress + overweight Eyes: EOM intact bilaterally; no conjunctival abnormality ENMT: external ear and nose normal, oropharynx normal Neck: trachea midline, no thyromegaly normal visual inspection Respiratory: no respiratory distress Auscultation: + crackles Cardiovascular: Rate/Rhythm: regular rate and + irregularly irregular Heart Sounds: normal S1 and normal S2 Vessels: no JVD Extremities: + edema Gastrointestinal (Abdomen): Inspection/Auscultation: abdomen normal to inspection; abdomen not distended Musculoskeletal: no cyanosis or clubbing, extremities motor strength 5/5 Skin: no rashes, warm and dry + induration, decreased erythema; no fluctulance Neurologic: moves all extremities and awake Psychiatric: Orientation: alert, oriented to person and cooperative Discharge Data Allergies Allergy/AdvReac Type Severity Reaction Status Date / Time No Known Allergies Allergy Unverified 10/14/20 11:33 Consultations 10/04/20 07:48 ED Decision to Admit Stat 10/04/20 10:18 Consult Cardiology Routine Ordered Studies 10/08/20 13:30 US ankle/brachial index comp Urgent Hospital Course (1) Cellulitis of leg, right: Right lower extremity, likely due to edema. -Patient continues to require furosemide. - Vancomycin - Follow skin & blood cultures from 10/04 -> Skin (pustule) culture growing Group B Strep. Will continue vanc x 1 more day, but then possibly switch to Keflex if no other cultures positive. - Wound consult entered - will contiue to monitor. cultures do not show any signs of MRSA. will transition to cephalexin. will continue at discharge and have her followup with wound clinic as an outpatient. (2) Acute heart failure: Unclear whether this is diastolic vs. systolic as we do not have an echo in the charts. - Continue furosemide 40 mg IV BID - Monitor Cr -> Up slightly today; monitor. - Monitor I&Os, weights -> Looks to be net even from her vanc IV and PO intake from yesterday. If no improvement today, will increase dose of Lasix. - [facility] cardiology consulted for further recs -> Echo ordered appreciate input.. (3) Atrial fibrillation: Presumed chronic afib. In afib on admission with controlled rate. - Has been bradycardic while here. - Switch atenolol to Toprol XL per cardiology recs - Hold digoxin - Continue warfarin - Monitor INR (4) Hypertension: BP in the hospital is 150/70. - Continue home meds (5) Hypothyroidism: TSH was 2.6 on admission. - Continue home levothyroxine 150 mcg daily (6) Hyperlipidemia: - Continue statin (7) DVT prophylaxis: On warfarin for afib Patient requires head of the bed to be elevated to 30 degrees and requires frequenct repositioning not able to be obtained in a standard bed. (8) Acute delirium: Appears patient has been confused while here. And she gets more aggressive overnight. Howeer this past night, no issues after taking olanzapine. will monitor. Total Time Total Time Spent Total Time Spent (In Minutes): 32 Total Time Includes: Examination of the Patient, Discharge Planning and Medication Reconciliation Discharge Plan Discharge Items Patient Disposition: Home - Self-Care Reason For Visit: CELLULITIS,CHF Discharge Diagnosis: cellulitis Activity: Resume your previous activity Non-emergency contact: Primary Care Provider Call non-emergency contact if: you have any medication questions Follow-up/Referrals: wound care [Other] - 10/09/20 8:00 am (We have been asked to set you up with an appt at the wound care center. This appt is for 10/09 @ 0800am. Please arrive 15 minutes prior to your appt time. If you have questions or concerns please call the above number. ) Lovely العلي [Outside Practitioners] - 10/14/20 10:00 am (We have set up a PCP for you, her name is Lovely العلي. This appt is on 10/14 @ 10am. Please arrive 15 minutes prior to this appt. If this appt does not fit your schedule, you will need to call and reschedule. ) Diet: Heart Healthy Addtl Attending Provider Instructions: Optofoam daily Pending Studies at Discharge: No Stand-Alone Forms: My [facility] [employer], Smoking Cessation Medications and DC Order Prescriptions: New amlodipine [Norvasc] 5 mg Tablet 10 mg PO QAM Qty: 30 RF: 0 metoprolol succinate 50 mg Tablet Extended Release 24 Hr 50 mg PO QAM Qty: 30 RF: 0 torsemide 10 mg Tablet 20 mg PO QAM Qty: 30 RF: 0 Continued warfarin 2.5 mg Tablet 2.5 mg PO [id number] RF: 0 levothyroxine 150 mcg Tablet 150 mcg PO DAILY RF: 0 potassium chloride 20 mEq Tablet Extended Release 20 meq PO DAILY RF: 0 pravastatin 40 mg Tablet 40 mg PO HS RF: 0 losartan 100 mg Tablet 100 mg PO DAILY RF: 0 Discontinued digoxin 125 mcg (0.125 mg) Tablet 125 mcg PO DAILY RF: 0 furosemide 40 mg Tablet 40 mg PO DAILY PRN (Reason: Edema) RF: 0 atenolol 50 mg Tablet 50 mg PO BID RF: 0 Discharge Orders: Discharge Order (Routine); Ordered 10/08/20 Ordered By: Brad Chang Admission Data Admit Date/Time: 10/04/20 08:24 Attending Provider: Brad Chang Admit Provider: Taran Copeland Primary Care Provider: PCP,NO Other Providers: Taran Copeland ; Manav Moore Other Interventions: Discharge Summary Assessment (RN) Last Done: 10/08/20 17:23 Coding Level of Care Code D/C Day Management >30 mins Diagnoses Cellulitis of leg, right L03.115 Acute heart failure I50.9 Atrial fibrillation I48.20 Atrial fibrillation type: unspecified chronic Hypertension I10 Hypertension type: essential hypertension Hypothyroidism E03.9 Hyperlipidemia E78.2 Hyperlipidemia type: mixed hyperlipidemia DVT prophylaxis Z29.9 Acute delirium R41.0
== END 2020-10-08 17:24 | disposition home or self-care (01) | DRG 602 ==
LOC: EDSEX → ED 06:00 → 2N 08:24 → SUATTDRO 08:24 → 2N 09:39

== ENCOUNTER 2022-03-21 12:22 | Inpatient (IN) ==
--- NOTE | 2022-03-21 13:04 | Emergency Department Note ---
History of Present Illness General Chief complaint: Shortness of Breath/Dyspnea Stated complaint: SOB Time Seen by Provider: 03/21/22 12:50 Source: patient and family (Daughter who is at the bedside) Mode of arrival: ambulatory Limitations: no limitations History of Present Illness This patient comes in after having increasing swelling in her extremities is been going on for quite some time apparently she has been to physical therapy for lymphedema she also takes torsemide today they thought her toes and fingers looked discolored so they recommend she get evaluated. The patient may have had a low oxygen narrow though the daughter says it was not correlating in the ambulance it was normal. The patient has no symptoms at present besides some swelling in her legs which seems to be chronic she has no chest pain shortness of breath or fever or chills. No blood or melena stool. No fall or trauma. No focal numbness or weakness. She has not had blood work in about a year because her daughter says she is a tough stick Home Medications Medication Instructions Recorded Confirmed Type levothyroxine 150 mcg tablet 150 mcg PO DAILY 10/04/20 03/21/22 History losartan 100 mg tablet 100 mg PO DAILY 10/04/20 03/21/22 History pravastatin 40 mg tablet 40 mg PO HS 10/04/20 03/21/22 History warfarin 2.5 mg tablet See Rx Instructions .Route .COMPLEX 10/04/20 03/21/22 History metoprolol succinate 50 mg 50 mg PO QAM #30 tabs 10/08/20 03/21/22 Rx tablet,extended release 24 hr lorazepam 0.5 mg tablet (Ativan) 0.5 mg PO .COMPLEX anxiety #1 tab 11/06/20 03/21/22 Rx amlodipine 2.5 mg tablet 2.5 mg PO QAM 03/21/22 03/21/22 History potassium chloride 10 mEq 10 meq PO QAM 03/21/22 03/21/22 History tablet,extended release torsemide 20 mg tablet See Rx Instructions .Route .COMPLEX 03/21/22 03/21/22 History Allergies Allergy/AdvReac Type Severity Reaction Status Date / Time No Known Allergies Allergy Verified 03/21/22 16:17 Past Med/Surg History Medical History Atrial fibrillation Cataract fragments in both eyes following surgery Heart failure Hyperlipidemia Hypertension Hypothyroidism Surgical History H/O: hysterectomy Family History Other Heart disease Stroke Social History Smoking Status: Former smoker Tobacco Type: Cigarettes Hx Alcohol Use: Yes Hx Substance Use: No Preferred Language: Scottish Communication Ability: Effective 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 Class Required: No Beliefs That Will Affect Care: None Current Living Situation: Family Feels Safe at Home: Yes Assistive Devices: Glasses Review of Systems A total of 10 systems reviewed and were otherwise negative Physical Exam Vital Signs Vital Signs - 24 hr 03/21/22 12:10 03/21/22 12:19 03/21/22 12:19 Temperature 36.6 C Temperature Source Oral Pulse Rate 83 Pulse Rate [Apical] Respiratory Rate 20 Respiratory Effort / Characteristics Non-Labored Spontaneous Non-Labored Spontaneous Respiratory Depth Normal Normal Respiratory Pattern Regular Regular Blood Pressure 141/77 H Blood Pressure [Right Arm] Blood Pressure Mean 98 Blood Pressure Mean [Right Arm] Blood Pressure Position Sitting Blood Pressure Position [Right Arm] Pulse Oximetry 97 97 Oxygen Delivery Method Room Air Room Air Room Air Sepsis Recent Fever Within 48 Hours No Sepsis New/Unexplained Change in Mental Status N/A Sepsis Action Taken by Nursing No Action Required 03/21/22 12:59 03/21/22 14:10 03/21/22 18:00 Temperature Temperature Source Pulse Rate Pulse Rate [Apical] 85 71 Respiratory Rate 18 20 Respiratory Effort / Characteristics Non-Labored Spontaneous Non-Labored Spontaneous Respiratory Depth Normal Normal Respiratory Pattern Regular Regular Blood Pressure Blood Pressure [Right Arm] 141/77 H 113/88 Blood Pressure Mean Blood Pressure Mean [Right Arm] 98 96 Blood Pressure Position Blood Pressure Position [Right Arm] Sitting Sitting Pulse Oximetry 97 95 96 Oxygen Delivery Method Room Air Room Air Room Air Sepsis Recent Fever Within 48 Hours Sepsis New/Unexplained Change in Mental Status Sepsis Action Taken by Nursing General: Well developed well nourished older female who has no acute complaints and appears in no acute distress, breathing comfortably on room air. Normal speech HEENT: Normal cephalic atraumatic. Pupils are equal round and reactive to light. Extraocular movements are intact. Oropharynx is pink with moist mucous membranes. No swelling of the mouth lips or tongue. Neck: Supple with a midline trachea. No meningeal signs or stiffness, no JVD or bruits. No Stridor. Chest: Clear to auscultation bilaterally. No wheezes or rhonchi. No increased work of breathing. Heart: Regular rate and rhythm without murmurs or gallops. Abdomen: Soft nontender, nondistended without rebound guarding or rigidity. Extremities: No cyanosis clubbing. She has bilateral lower extremity swelling.. The toes are slightly discolored however she has good capillary refill. no calf tenderness or assymetry Spine/Back. Non tender to palpation. No CVA tenderness Skin: Good turgor without rashes. Neurologic exam: Cranial nerves two through 12 are intact. Motor and sensation are intact and symmetrical throughout. Course Administered Medications Discontinued Medications Furosemide (Furosemide Inj 20 Mg/2 Ml Vial) 20 mg IV ONE ONE Stop: 03/21/22 15:17 Last Admin: 03/21/22 15:32 Dose: 20 mg Documented By: NITHIN Medical Decision Making Differential Diagnosis CHF, acute coronary syndrome, arrhythmia, electrolyte or metabolic abnormality, infection, COVID Medical Records Attestation: I reviewed the patient's medical records. Home Medications Current Medication List: was personally reviewed by me Laboratory Data Attestation: I reviewed the patient's lab results. Result diagrams: 03/21/22 13:55 03/21/22 13:55 Lab Results 03/21/22 03/21/22 03/21/22 Range/Units 13:55 13:55 13:55 WBC 8.50 (4.8-10.8) K/ul RBC 4.63 (3.93-5.22) M/uL Hgb 15.1 (12.0-16.0) g/dl Hct 45.2 H (34.1-44.9) % MCV 97.6 (80.0-100.0) fL MCH 32.6 (25.0-34.0) pg MCHC 33.4 (32.0-36.0) g/dL RDW Std Deviation 49.9 H (36.4-46.3) fL RDW Coeff of Merly 13.9 (11.5-14.5) % Plt Count 259 (130-400) K/uL MPV 10.7 (9.4-12.3) fL Immature Gran % (Auto) 0.2 % Neut % (Auto) 63.1 % Lymph % (Auto) 15.5 % [place] % (Auto) 17.4 % Eos % (Auto) 3.4 % Baso % (Auto) 0.4 % Neut # (Auto) 5.36 (1.4-6.5) K/uL Lymph # (Auto) 1.32 (1.2-3.4) K/uL [place] # (Auto) 1.48 H (0.24-0.82) K/uL Eos # (Auto) 0.29 (0-0.50) K/uL Baso # (Auto) 0.03 (0-0.2) K/uL Immature Gran # (Auto) 0.02 (0.00-0.02) K/uL PT 26.6 H (9.0-12.0) Seconds INR 2.6 H (0.9-1.1) APTT 35.9 H (21.0-31.0) Seconds PTT Ratio 1.3 Sodium 136 (136-145) mmol/L Potassium 4.4 (3.5-5.1) mmol/L Chloride 100 (98-107) mmol/L Carbon Dioxide 27 (21-32) mmol/L Anion Gap 9 (3-11) BUN 25 H (6-23) mg/dl Creatinine 0.83 (0.6-1.2) mg/dl Est Cr Clr Drug Dosing 58.5 ml/min Est GFR ( Amer) 73.5 ml/min Est GFR (Non-Af Amer) 63.4 ml/min BUN/Creatinine Ratio 30.1 H (10-20) Glucose 92 (70-99(Fasting)) mg/dl Calcium 9.8 (8.5-10.1) mg/dl Magnesium 2.0 (1.7-2.4) mg/dl Total Bilirubin 0.5 (0.2-1.0) mg/dl AST 20 (13-39) U/L ALT 15 (7-52) U/L Alkaline Phosphatase 119 H (34-104) U/L Troponin I High Sens 5.7 (0-14) pg/ml B-Natriuretic Peptide (0-100) pg/ml Total Protein 7.2 (6.0-8.3) gm/dl Albumin 4.1 (3.4-5.0) gm/dl Globulin 3.1 (2.5-4.0) gm/dl Albumin/Globulin Ratio 1.3 (0.9-2) Lipase 15 (11-82) U/L Urine Color Urine Appearance (Clear) Urine pH (4.5-7.5) Ur Specific [place] (1.000-1.030) Urine Protein (Negative) Urine Glucose (UA) (Negative) Urine Ketones (Negative) Urine Blood (Negative) Urine Nitrite (Negative) Urine Bilirubin (Negative) Urine Urobilinogen (Negative) Ur Leukocyte Esterase (Negative) Urine WBC (Auto) (0-5) /hpf Urine RBC (Auto) (0-4) /hpf U Hyaline Cast (Auto) (0-5) /lpf U Epithel Cells (Auto) (0-5) /lpf Urine Bacteria (Auto) (Negative) SARS-CoV-2, RNA, NAAT (NEGATIVE) 03/21/22 03/21/22 03/21/22 Range/Units 14:35 17:29 18:15 WBC (4.8-10.8) K/ul RBC (3.93-5.22) M/uL Hgb (12.0-16.0) g/dl Hct (34.1-44.9) % MCV (80.0-100.0) fL MCH (25.0-34.0) pg MCHC (32.0-36.0) g/dL RDW Std Deviation (36.4-46.3) fL RDW Coeff of Mer[place] (11.5-14.5) % Plt Count (130-400) K/uL MPV (9.4-12.3) fL Immature Gran % (Auto) % Neut % (Auto) % Lymph % (Auto) % [place] % (Auto) % Eos % (Auto) % Baso % (Auto) % Neut # (Auto) (1.4-6.5) K/uL Lymph # (Auto) (1.2-3.4) K/uL [place] # (Auto) (0.24-0.82) K/uL Eos # (Auto) (0-0.50) K/uL Baso # (Auto) (0-0.2) K/uL Immature Gran # (Auto) (0.00-0.02) K/uL PT (9.0-12.0) Seconds INR (0.9-1.1) APTT (21.0-31.0) Seconds PTT Ratio Sodium (136-145) mmol/L Potassium (3.5-5.1) mmol/L Chloride (98-107) mmol/L Carbon Dioxide (21-32) mmol/L Anion Gap (3-11) BUN (6-23) mg/dl Creatinine (0.6-1.2) mg/dl Est Cr Clr Drug Dosing ml/min Est GFR ( Amer) ml/min Est GFR (Non-Af Amer) ml/min BUN/Creatinine Ratio (10-20) Glucose (70-99(Fasting)) mg/dl Calcium (8.5-10.1) mg/dl Magnesium (1.7-2.4) mg/dl Total Bilirubin (0.2-1.0) mg/dl AST (13-39) U/L ALT (7-52) U/L Alkaline Phosphatase (34-104) U/L Troponin I High Sens (0-14) pg/ml B-Natriuretic Peptide 104 H (0-100) pg/ml Total Protein (6.0-8.3) gm/dl Albumin (3.4-5.0) gm/dl Globulin (2.5-4.0) gm/dl Albumin/Globulin Ratio (0.9-2) Lipase (11-82) U/L Urine Color Yellow Urine Appearance Clear (Clear) Urine pH 7.0 (4.5-7.5) Ur Specific [place] 1.008 (1.000-1.030) Urine Protein Negative (Negative) Urine Glucose (UA) Negative (Negative) Urine Ketones Negative (Negative) Urine Blood Trace H (Negative) Urine Nitrite Negative (Negative) Urine Bilirubin Negative (Negative) Urine Urobilinogen Negative (Negative) Ur Leukocyte Esterase Trace H (Negative) Urine WBC (Auto) 1-5 (0-5) /hpf Urine RBC (Auto) 0-4 (0-4) /hpf U Hyaline Cast (Auto) 0 (0-5) /lpf U Epithel Cells (Auto) 5-10 H (0-5) /lpf Urine Bacteria (Auto) Negative (Negative) SARS-CoV-2, RNA, NAAT NEGATIVE (NEGATIVE) Imaging Data Attestation: I personally reviewed and interpreted this imaging study as follows: My Impression: Chest x-rayshe has cardiomegaly there is pleural effusion on the left. She has a degree of CHF Radiologist's Impression: Chest X-Ray 03/21/22 12:59 XR chest 1V portable HISTORY: 86 years-old Female weakness acute weakness COMPARISON: Chest radiograph 10/04/2020 TECHNIQUE: Portable AP view of the chest FINDINGS: The cardiac silhouette is enlarged. Pulmonary vascular congestion. Atherosclerosis of the thoracic aorta. There is no pneumothorax. Subsegmental bibasilar densities suggest probable atelectasis/scarring. Degenerative changes of the shoulders and spine. Calcified bilateral breast implants. IMPRESSION: Cardiomegaly with pulmonary vascular congestion. ACT 112: Negative or not required by law. The above report was generated using voice recognition software. It may contain grammatical, syntax or spelling errors. Electronically signed by: Dillan Haynes M.D. 03/21/2022 1:48 PM ECG Data Attestation: I personally reviewed and interpreted this ECG as follows: Indication: + weakness Rate (beats per minute): 75 Rhythm: + atrial fibrillation ECG Intervals/blocks: + Normal QRS and + Normal QT ECG [place]: + Normal ECG ST segments: + Normal ST segments ECG Findings: + Other (Low voltage); no PACs or no PVCs Comparison ECG Date: from (10/04/20) Change: no significant change MDM Narrative This patient comes in as described above. She was placed on a digital account executive in room B 10. She is here for treatment evaluation after having increased lower extremity edema this seems more of a chronic issue her O2 sat may have been low today but it is fine here she has stable vital signs and has no other complaints. I did order IV access and blood work as well as a chest x-ray and EKG. her EKG shows chronic A. fib without acute ischemic changes. Chest x-ray shows some congestive changes with a pleural effusion on the left some of which I think is likely chronic. EKG shows no definite ischemic changes chronic A. fib. She has no bump in her troponin or chest pain to suggest acute cardiac event. BNP is mildly elevated consistent with CHF. She has no acute electrolyte or metabolic abnormalities. She is therapeutic meeting with an INR of 2.6. I did give her Lasix 20 mg IV.I do think she is fluid overloaded and would benefit from diuresis and further treatment and evaluation. I consulted with the hospitalist to see her. COVID testing was negative. Continuous cardiac monitoring: Orders placed in EMR for continuous cardiac monitoring. Upon my interpretation he was noted to be in rate controlled A. fib in the 70s Impression & Plan CHF (congestive heart failure), A-fib, Bilateral edema of lower extremity, C urrent use of senior living anticoagulation, Lab test negative for COVID-19 virus Discharge Plan Visit Data Chief Complaint: Shortness of Breath/Dyspnea Stated Complaint: SOB ED Provider: Warner Randall Discharge Problem: CHF (congestive heart failure), A-fib, Bilateral edema of lower extremity, Current use of meterman anticoagulation, Lab test negative for COVID-19 virus Forms Stand Alone Forms: My [facility] Prescriptions Prescriptions: No Action lorazepam [Ativan] 0.5 mg tablet 0.5 mg PO .COMPLEX Qty: 1 0RF Rx Instructions: 0.5 mg PO 1 HOUR PRIOR TO PROCEDURE; warfarin 2.5 mg Tablet See Rx Instructions .ROUTE .COMPLEX Rx Instructions: 2.5 mg orally; TAKES 2.5 MG ON SUN, TUES, THURS, FRI., THEN 1.25 MG ON MON, WED, & SAT. levothyroxine 150 mcg Tablet 150 mcg PO DAILY pravastatin 40 mg Tablet 40 mg PO HS losartan 100 mg Tablet 100 mg PO DAILY metoprolol succinate 50 mg Tablet Extended Release 24 Hr 50 mg PO QAM Qty: 30 0RF torsemide 20 mg tablet See Rx Instructions .ROUTE .COMPLEX Rx Instructions: 20 mg ORALLY; TAKES 20 MG QAM, THEN 10 MG QDD. amlodipine 2.5 mg tablet 2.5 mg PO QAM potassium chloride 10 mEq tablet extended release 10 meq PO QAM Referrals Referrals: PCP,NO [Physician] - : CHF (congestive heart failure) Qualifiers: Heart failure type: unspecified Heart failure chronicity: acute on chronic Qualified Code(s): I50.9 - Heart failure, unspecified A-fib Qualifiers: Atrial fibrillation type: longstanding persistent Qualified Code(s): I48.11 - Longstanding persistent atrial fibrillation
--- NOTE | 2022-03-21 13:50 | XRay Report ---
XR chest 1V portable HISTORY: 86 years-old Female weakness acute weakness COMPARISON: Chest radiograph 10/04/2020 TECHNIQUE: Portable AP view of the chest FINDINGS: The cardiac silhouette is enlarged. Pulmonary vascular congestion. Atherosclerosis of the thoracic ao rta. There is no pneumothorax. Subsegmental bibasilar densities suggest probable atelectasis/scarring . Degenerative changes of the shoulders and spine. Calcified bilateral breast implants. IMPRESSION: Cardiomegaly with pulmonary vascular congestion. ACT 112: Negative or not required by law. The above report was generated using voice recognition software. It may contain grammatical, syntax o r spelling errors. Electronically signed by: Dillan Haynes M.D. 03/21/2022 1:48 PM
[2022-03-21 14:02] LABS: Basophils # (auto) 0.03 K/uL (0-0.2); Basophils % (auto) 0.4 %; Eosinophils # (auto) 0.29 K/uL (0-0.50); Eosinophils % (auto) 3.4 %; Hematocrit (blood only) 45.2 % (34.1-44.9); Hemoglobin 15.1 g/dl (12.0-16.0); Immature Granulocytes # (auto) 0.02 K/uL (0.00-0.02); Immature Granulocytes % (auto) 0.2 %; Lymphocytes # (auto) 1.32 K/uL (1.2-3.4); Lymphocytes % (auto) 15.5 %; Mean Corpuscular Hemoglobin 32.6 pg (25.0-34.0); Mean Corpuscular Hgb Conc 33.4 g/dL (32.0-36.0); Mean Corpuscular Volume 97.6 fL (80.0-100.0); Mean Platelet Volume 10.7 fL (9.4-12.3); Monocytes # (auto) 1.48 K/uL (0.24-0.82); Monocytes % (auto) 17.4 %; Neutrophils # (auto) 5.36 K/uL (1.4-6.5); Neutrophils % (auto) 63.1 %; Platelet Count 259 K/uL (130-400); RDW Coefficient of Variation 13.9 % (11.5-14.5); RDW Standard Deviation 49.9 fL (36.4-46.3); Red Blood Count 4.63 M/uL (3.93-5.22)
[2022-03-21 14:20] LABS: INR 2.6 (0.9-1.1); Partial Thromboplastin Ratio 1.3; Partial Thromboplastin Time 35.9 Seconds (21.0-31.0); Prothrombin Time 26.6 Seconds (9.0-12.0)
[2022-03-21 14:30] LABS: Troponin I High Sensitivity 5.7 pg/ml (0-14)
[2022-03-21 14:38] LABS: Albumin Globulin Ratio 1.3 (0.9-2); Albumin Level 4.1 gm/dl (3.4-5.0); BUN Creatinine Ratio 30.1 (10-20); Bilirubin,Total 0.5 mg/dl (0.2-1.0); Calcium 9.8 mg/dl (8.5-10.1); Creatinine Clr Calc Pharmacy 58.5 ml/min; Est GFR (African American) 73.5 ml/min; Est GFR (Non-African American) 63.4 ml/min; Globulin 3.1 gm/dl (2.5-4.0); Potassium 4.4 mmol/L (3.5-5.1); Total Protein 7.2 gm/dl (6.0-8.3)
[2022-03-21] MEDS ORDERED: FUROSEMIDE INJ 20 MG/2 ML VIAL IV ONE (15:16)
--- NOTE | 2022-03-21 15:58 | History & Physical Report ---
Date of Service March 21, 2022 Assessment & Plan (1) Acute on chronic heart failure with preserved ejection fraction (HFpEF): Plan: Lisseth Renae is an 86-year-old female with PMH of CHF, permanent afib, lymphedema, hypothyroidism who presented due to worsening swelling. Admitted for management of CHF exacerbation and left leg cellulitis. Acute on chronic HFpEF Last echo in September 2020 showing EF of 65 to 70%, grade 3 diastolic d ysfunction consistent with restrictive physiology, moderate aortic valve sclerosis without significant stenosis, moderate aortic regurg, mild mitral regurg, moderate tricuspid regurg, mild left atrial enlargement, PA systolic pressure of 36 mmHg assuming a right atrial pressure of 8 mmHg. Will need to ensure good rate and blood pressure control going forward for adequate control of her HFpEF Give additional Lasix 40 mg IV today, continue twice daily thereafter Repeat echo BMP in a.m. to monitor kidney function Daily weights, monitor I's and O's Left leg cellulitis No sepsis, hemodynamically stable, no fevers Cover MRSA and Strep with IV Vanco Will treat with ceftriaxone as well for gram neg coverage Atrial fibrillation Currently rate controlled Continue home metoprolol Continue home warfarin Monitor INR daily Hypertension Continue home losartan and amlodipine Hypothyroidism Continue home levothyroxine -check TSH in AM Hyperlipidemia Continue home pravastatin CODE STATUS: Full DVT prophylaxis: Anticoagulated on warfarin Diet: Heart healthy low-sodium Dispo: Admit to med telemetry (2) Lymphedema: (3) Hyperlipidemia: (4) Hypothyroidism: (5) Hypertension: (6) Atrial fibrillation: (7) Cellulitis of leg, left: History of Present Illness Primary Care Provider: Lovely العلي Lisseth Renae is an 86-year-old female with PMH of CHF, permanent afib, lymphedema, hypothyroidism who presented due to worsening swelling. Patient states that she has noticed her legs are more swollen but denies shortness of breath. Her daughter is at bedside who states that patient has had worsening swelling over the past month. Daughter has tried on multiple occasions to convince patient to follow up with [facility], whom she sees as an outpatient. However, patient has refused and preferred to f/u with her PCP -- daughter did state that they were in the process of transitioning care to [facility] with Dr. Carvajal whom she sees for vascular care, had appt later this month. She has been instructed by Cardiology in the past, and PCP more recently, to add torsemide 10mg in the afternoons on top of her torsemide 20mg daily in AM when she seems more swollen. Patient had a PT appointment today for lymphedema and her therapist recommended she come in due to significant swelling and her toes looking discolored. The patient's daughter is also concerned patient has cellulitis, as her left leg has gotten very red within the past 2 weeks and has started seeping some fluid. She does state the patient scratches her leg often. She has had no f/c, SOB, cough, n/v, abd pain, CP, palp. In the ED had CXR showing pulmonary vascular congestion, labs with BNP of 104, therapeutic INR, normal blood counts, normal electrolytes, normal troponin. EKG showed rate controlled atrial fibrillation with no signs of new ischemia. She received Lasix 20 mg IV x1. Allergies Allergy/AdvReac Type Severity Reaction Status Date / Time No Known Allergies Allergy Verified 03/21/22 16:17 Home Medications Medication Instructions Recorded Confirmed Type levothyroxine 150 mcg tablet 150 mcg PO DAILY 10/04/20 03/21/22 History losartan 100 mg tablet 100 mg PO DAILY 10/04/20 03/21/22 History pravastatin 40 mg tablet 40 mg PO HS 10/04/20 03/21/22 History warfarin 2.5 mg tablet See Rx Instructions .Route .COMPLEX 10/04/20 03/21/22 History metoprolol succinate 50 mg 50 mg PO QAM #30 tabs 10/08/20 03/21/22 Rx tablet,extended release 24 hr lorazepam 0.5 mg tablet (Ativan) 0.5 mg PO .COMPLEX anxiety #1 tab 11/06/20 03/21/22 Rx amlodipine 2.5 mg tablet 2.5 mg PO QAM 03/21/22 03/21/22 History potassium chloride 10 mEq 10 meq PO QAM 03/21/22 03/21/22 History tablet,extended release torsemide 20 mg tablet See Rx Instructions .Route .COMPLEX 03/21/22 03/21/22 History Past Med/Surg History Medical History Aortic regurgitation Atrial fibrillation Cataract fragments in both eyes following surgery Current use of group home anticoagulation Heart failure Hyperlipidemia Hypertension Hypothyroidism Lymphedema Tricuspid regurgitation Surgical History H/O: hysterectomy Family History Other Heart disease Stroke Social History Smoking Status: Former smoker Tobacco Type: Cigarettes Hx Alcohol Use: Yes Hx Substance Use: No Preferred Language: Zambian Communication Ability: Effective Budder Required: No Beliefs That Will Affect Care: None Current Living Situation: Family Feels Safe at Home: Yes Assistive Devices: Glasses Review of Systems Review of Systems: Per HPI Physical Exam Physical Exam: GENERAL: A&Ox3. NAD. HEENT: PERRL, EOMI. Moist mucous membranes. NECK: No JVD. No lymphadenopathy. CHEST/LUNGS: CTAB A/P. No crackles, wheezes, rales, rhonchi. HEART: RRR. No m/g/r. No carotid bruits. ABDOMEN: NT/ND, soft. BS+ x4. EXTREMITIES: 3+ pitting edema up to mid thigh bilaterally. Left lower left leg with redness from ankle to 1 inch below knee with exudate. SKIN: Warm and dry. No rashes or lesions. PSYCHIATRIC: Euthymic affect, no SI, no pressured speech, no hallucinations NEUROLOGIC: No FND. CN II-XII grossly intact. Results & Data Results & Data ([facility]) Vital Signs (Past 12 Hours) Vital Signs Temp Pulse Pulse Resp BP BP Pulse Ox 03/21/22 14:10 85 18 141/77 H 95 03/21/22 12:59 97 03/21/22 12:19 97 03/21/22 12:19 03/21/22 12:10 36.6 C 83 20 141/77 H 97 O2 Del Method 03/21/22 14:10 Room Air 03/21/22 12:59 Room Air 03/21/22 12:19 Room Air 03/21/22 12:19 Room Air 03/21/22 12:10 Room Air Laboratory Results 03/21/22 03/21/22 03/21/22 Range/Units 18:15 17:29 14:35 WBC (4.8-10.8) K/ul RBC (3.93-5.22) M/uL Hgb (12.0-16.0) g/dl Hct (34.1-44.9) % MCV (80.0-100.0) fL MCH (25.0-34.0) pg MCHC (32.0-36.0) g/dL RDW Std Deviation (36.4-46.3) fL RDW Coeff of Merly (11.5-14.5) % Plt Count (130-400) K/uL MPV (9.4-12.3) fL Immature Gran % (Auto) % Neut % (Auto) % Lymph % (Auto) % [place] % (Auto) % Eos % (Auto) % Baso % (Auto) % Neut # (Auto) (1.4-6.5) K/uL Lymph # (Auto) (1.2-3.4) K/uL [place] # (Auto) (0.24-0.82) K/uL Eos # (Auto) (0-0.50) K/uL Baso # (Auto) (0-0.2) K/uL Immature Gran # (Auto) (0.00-0.02) K/uL PT (9.0-12.0) Seconds INR (0.9-1.1) APTT (21.0-31.0) Seconds PTT Ratio Sodium (136-145) mmol/L Potassium (3.5-5.1) mmol/L Chloride (98-107) mmol/L Carbon Dioxide (21-32) mmol/L Anion Gap (3-11) BUN (6-23) mg/dl Creatinine (0.6-1.2) mg/dl Est Cr Clr Drug Dosing ml/min Est GFR ( Amer) ml/min Est GFR (Non-Af Amer) ml/min BUN/Creatinine Ratio (10-20) Glucose (70-99(Fasting)) mg/dl Calcium (8.5-10.1) mg/dl Magnesium (1.7-2.4) mg/dl Total Bilirubin (0.2-1.0) mg/dl AST (13-39) U/L ALT (7-52) U/L Alkaline Phosphatase (34-104) U/L Troponin I High Sens (0-14) pg/ml B-Natriuretic Peptide 104 H (0-100) pg/ml Total Protein (6.0-8.3) gm/dl Albumin (3.4-5.0) gm/dl Globulin (2.5-4.0) gm/dl Albumin/Globulin Ratio (0.9-2) Lipase (11-82) U/L Urine Color Yellow Urine Appearance Clear (Clear) Urine pH 7.0 (4.5-7.5) Ur Specific [place] 1.008 (1.000-1.030) Urine Protein Negative (Negative) Urine Glucose (UA) Negative (Negative) Urine Ketones Negative (Negative) Urine Blood Trace H (Negative) Urine Nitrite Negative (Negative) Urine Bilirubin Negative (Negative) Urine Urobilinogen Negative (Negative) Ur Leukocyte Esterase Trace H (Negative) Urine WBC (Auto) 1-5 (0-5) /hpf Urine RBC (Auto) 0-4 (0-4) /hpf U Hyaline Cast (Auto) 0 (0-5) /lpf U Epithel Cells (Auto) 5-10 H (0-5) /lpf Urine Bacteria (Auto) Negative (Negative) SARS-CoV-2, RNA, NAAT NEGATIVE (NEGATIVE) 03/21/22 03/21/22 03/21/22 Range/Units 13:55 13:55 13:55 WBC 8.50 (4.8-10.8) K/ul RBC 4.63 (3.93-5.22) M/uL Hgb 15.1 (12.0-16.0) g/dl Hct 45.2 H (34.1-44.9) % MCV 97.6 (80.0-100.0) fL MCH 32.6 (25.0-34.0) pg MCHC 33.4 (32.0-36.0) g/dL RDW Std Deviation 49.9 H (36.4-46.3) fL RDW Coeff of Merly 13.9 (11.5-14.5) % Plt Count 259 (130-400) K/uL MPV 10.7 (9.4-12.3) fL Immature Gran % (Auto) 0.2 % Neut % (Auto) 63.1 % Lymph % (Auto) 15.5 % [place] % (Auto) 17.4 % Eos % (Auto) 3.4 % Baso % (Auto) 0.4 % Neut # (Auto) 5.36 (1.4-6.5) K/uL Lymph # (Auto) 1.32 (1.2-3.4) K/uL [place] # (Auto) 1.48 H (0.24-0.82) K/uL Eos # (Auto) 0.29 (0-0.50) K/uL Baso # (Auto) 0.03 (0-0.2) K/uL Immature Gran # (Auto) 0.02 (0.00-0.02) K/uL PT 26.6 H (9.0-12.0) Seconds INR 2.6 H (0.9-1.1) APTT 35.9 H (21.0-31.0) Seconds PTT Ratio 1.3 Sodium 136 (136-145) mmol/L Potassium 4.4 (3.5-5.1) mmol/L Chloride 100 (98-107) mmol/L Carbon Dioxide 27 (21-32) mmol/L Anion Gap 9 (3-11) BUN 25 H (6-23) mg/dl Creatinine 0.83 (0.6-1.2) mg/dl Est Cr Clr Drug Dosing 58.5 ml/min Est GFR ( Amer) 73.5 ml/min Est GFR (Non-Af Amer) 63.4 ml/min BUN/Creatinine Ratio 30.1 H (10-20) Glucose 92 (70-99(Fasting)) mg/dl Calcium 9.8 (8.5-10.1) mg/dl Magnesium 2.0 (1.7-2.4) mg/dl Total Bilirubin 0.5 (0.2-1.0) mg/dl AST 20 (13-39) U/L ALT 15 (7-52) U/L Alkaline Phosphatase 119 H (34-104) U/L Troponin I High Sens 5.7 (0-14) pg/ml B-Natriuretic Peptide (0-100) pg/ml Total Protein 7.2 (6.0-8.3) gm/dl Albumin 4.1 (3.4-5.0) gm/dl Globulin 3.1 (2.5-4.0) gm/dl Albumin/Globulin Ratio 1.3 (0.9-2) Lipase 15 (11-82) U/L Urine Color Urine Appearance (Clear) Urine pH (4.5-7.5) Ur Specific [place] (1.000-1.030) Urine Protein (Negative) Urine Glucose (UA) (Negative) Urine Ketones (Negative) Urine Blood (Negative) Urine Nitrite (Negative) Urine Bilirubin (Negative) Urine Urobilinogen (Negative) Ur Leukocyte Esterase (Negative) Urine WBC (Auto) (0-5) /hpf Urine RBC (Auto) (0-4) /hpf U Hyaline Cast (Auto) (0-5) /lpf U Epithel Cells (Auto) (0-5) /lpf Urine Bacteria (Auto) (Negative) SARS-CoV-2, RNA, NAAT (NEGATIVE) Diagnostic Findings Chest X-Ray 03/21/22 12:59 XR chest 1V portable HISTORY: 86 years-old Female weakness acute weakness COMPARISON: Chest radiograph 10/04/2020 TECHNIQUE: Portable AP view of the chest FINDINGS: The cardiac silhouette is enlarged. Pulmonary vascular congestion. Atherosclerosis of the thoracic aorta. There is no pneumothorax. Subsegmental bibasilar densities suggest probable atelectasis/scarring. Degenerative changes of the shoulders and spine. Calcified bilateral breast implants. IMPRESSION: Cardiomegaly with pulmonary vascular congestion. ACT 112: Negative or not required by law. The above report was generated using voice recognition software. It may contain grammatical, syntax or spelling errors. Electronically signed by: Dillan Haynes M.D. 03/21/2022 1:48 PM ECG Additional Comments: ECG with atrial fibrillation, rate 75, no ischemic changes Code Status & VTE Plan Code Status FULL CODE VTE Prophylaxis Plan VTE Prophylaxis will be ordered: Yes Supervising Physician Co-Signing Physician Notes I personally examined the patient and verified all richards points of history and exam, discussed case, and agree with decision making with Dr. Dyer with the following additions/exceptions: S- Pt presents from her lymphedema clinic with significantly increased swelling in her legs and redness, warmth, discoloration of toes. Concern for volume overload due to Acute on chonric HFpEF. Has gained 12 kg since last visit here 15 months ago History and ROS reviewed as above O- Vitals reviewed Gen: [AAOx3, NAD,obese] HEENT: [anicteric sclerae, EOMI] CV: [irreg irreg no mgr nl S1S2] Pulm: [CTAB no wcr] Abd: [+BS soft NT ND no masses or hernias] Ext: [3+ pitting edema to thighs bilat, 2+ DP pulses] Skin: [L>R legs with erythema, warmth, fluid filled blisters with some weeping of serous fluid from left leg] Neuro: [full strength throughout] Labs, rads, ECG reviewed A/P-86 yo female with acute on chronic HFpEF, weight gain, LE edema, and cellulitis of legs Admit for diuresis, repeat ECHO, watch lytes Rates are controlled in Afib Start abx for cellulitis Continue coumadin for AC and DVT prophylaxis Resident Activity Tracking Resident Involvement: Resident Care Provided Care Provided: Adult Hospital Medicine (1) Atrial fibrillation Atrial fibrillation type: unspecified chronic Qualified Code(s): I48.20 - Chronic atrial fibrillation, unspecified (2) Hyperlipidemia Hyperlipidemia type: mixed hyperlipidemia Qualified Code(s): E78.2 - Mixed hyperlipidemia (3) Hypertension Hypertension type: essential hypertension Qualified Code(s): I10 - Essential (primary) hypertension
--- NOTE | 2022-03-21 18:08 | Electrocardiogram Report ---
Test Reason : Blood Pressure : / mmHG Vent. Rate : 075 BPM Atrial Rate : 057 BPM P-R Int : 000 ms QRS Dur : 080 ms QT Int : 394 ms P-R-T Axes : 000 008 012 degrees QTc Int : 439 ms Atrial fibrillation Low voltage QRS Abnormal ECG When compared with ECG of 04-OCT-2020 06:09, No significant change was found Confirmed by Roland Loyd ([id number]) on 03/21/2022 6:07:50 PM Referred By: REFERRED SELF Confirmed By:Michel Loyd
[2022-03-21 19:06] LABS: Appearance Urine Clear (Clear); Bacteria Urine Automated Negative (Negative); Bilirubin Urine Negative (Negative); Blood Urine Trace (Negative); Cast Urine Automated 0 /lpf (0-5); Color Urine Yellow; Glucose Urine UA Negative (Negative); Ketones Urine Negative (Negative); Leukocyte Esterase Urine Trace (Negative); Nitrite Urine Negative (Negative); Protein Urine Negative (Negative); RBC Urine Automated 0-4 /hpf (0-4); Specific Gravity Urine 1.008 (1.000-1.030); Urobilinogen Urine Negative (Negative)
[2022-03-21] MEDS ORDERED: FUROSEMIDE 40 MG/4 ML VIAL IV ONE (20:31)
[2022-03-21] MEDS ORDERED: POLYETHYLENE (MIRALAX) 17 GM PACK PO PRN (21:38)
[2022-03-21] MEDS ORDERED: ONDANSETRON INJ 2 MG/ML 2 ML VIAL IV PRN (21:38)
[2022-03-21] MEDS ORDERED: MAGNESIUM HYDROXIDE SUSP 30 ML UDC PO PRN (21:38)
[2022-03-21] MEDS ORDERED: ALUMINUM/MAGNESIUM SUSP 30 ML UDC PO PRN (21:38)
[2022-03-21] MEDS ORDERED: VANCOMYCIN CONSULT ACTIVE PRN (21:38)
--- NOTE | 2022-03-21 22:31 | Billing Data ---
Date of Service March 21, 2022 Coding Level of Care Code 46644 Initial Inpt Care Lvl 3
[2022-03-21] MEDS ORDERED: cefTRIAXone SODIUM 2,000 MG in DEXTROSE 5% 50 ML IV SCH (23:00)
[2022-03-21] MEDS ORDERED: WARFARIN SOD 1.25 MG TAB PO SCH (23:15)
[2022-03-21] MEDS: FUROSEMIDE 40 MG/4 ML VIAL IV SCH (23:26)
[2022-03-21] MEDS ORDERED: VANCOMYCIN HCL 2,000 MG in SODIUM CHLORIDE 0.9% 500 ML IV ONE (23:30)
[2022-03-21] MEDS: PRAVASTATIN SOD 40 MG TAB PO SCH (23:30)
[2022-03-22] MEDS: LEVOTHYROXINE SODIUM 150 MCG TABLET PO SCH (05:16)
[2022-03-22] MEDS: ACETAMINOPHEN 325 MG TAB PO PRN (05:18)
--- NOTE | 2022-03-22 07:17 | Hospitalist Progress Note ---
Date of Service March 22, 2022 Assessment & Plan (1) Acute on chronic heart failure with preserved ejection fraction (HFpEF): Plan: Lisseth Renae is an 86-year-old female with PMH of CHF, permanent afib, lymphedema, hypothyroidism who presented due to worsening swelling. Admitted for management of CHF exacerbation and left leg cellulitis. Acute on chronic HFpEF Last echo in September 2020 showing EF of 65 to 70%, grade 3 diastolic d ysfunction consistent with restrictive physiology, moderate aortic valve sclerosis without significant stenosis, moderate aortic regurg, mild mitral regurg, moderate tricuspid regurg, mild left atrial enlargement, PA systolic pressure of 36 mmHg assuming a right atrial pressure of 8 mmHg. Will need to ensure good rate and blood pressure control going forward for adequate control of her HFpEF Give additional Lasix 40 mg IV today, continue twice daily thereafter Repeat echo BMP in a.m. to monitor kidney function Daily weights, monitor I's and O's Left leg cellulitis No sepsis, hemodynamically stable, no fevers Cover MRSA and Strep with IV Vanco Will treat with ceftriaxone as well for gram neg coverage Atrial fibrillation Currently rate controlled Continue home metoprolol Continue home warfarin Monitor INR daily Hypertension Continue home losartan and amlodipine Hypothyroidism Continue home levothyroxine -check TSH in AM Hyperlipidemia Continue home pravastatin CODE STATUS: Full DVT prophylaxis: Anticoagulated on warfarin Diet: Heart healthy low-sodium Dispo: Admit to med telemetry (2) Lymphedema: (3) Hyperlipidemia: (4) Hypothyroidism: (5) Hypertension: (6) Atrial fibrillation: (7) Cellulitis of leg, left: Plan I personally examined the patient and verified all richards points of history and exam, discussed case, and agree with decision making with Dr Rosenthal. Leg feeling better. Vitals noted, in general she is awake and alert pleasant no distress. HEENT normocephalic atraumatic mucous membranes moist. Breathing unlabored no accessory muscle use good effort. Skin shows left lower extremity erythema from about the mid crenshaw down to the ankle with a few small pustules, mildly erythematous mildly tendershe notes that is dramatically better in redness, size, and tenderness compared to yesterday. Left leg cellulitis Transition to cefazolinimproving. Never sepsis/septic shock, MRSA nares negativeoverall low likelihood of resistant bacteria. Can always reescalate if worseningbut this is unlikely to be the case. Hopefully home tomorrow on p.o. antibiotics if further improvement. HFpEF (chronic) Last echo in September 2020 showing EF of 65 to 70%, grade 3 diastolic dysfunction -Appears to been treated and resolved Atrial fibrillation Rate controlled, anticoagulated Hypertension Continue home losartan and amlodipine Hypothyroidism Continue home levothyroxine Hyperlipidemia Continue home pravastatin Otherwise as above Admission and Anticipated Discharge Date Admission Date: March 21, 2022 Subjective Patient was seen in her chair this afternoon. She does not have any complaints today at this time. She denies any SOB, CP, N/V, or ab pain. Review of Systems Review of Systems: All systems reviewed & are unremarkable except as noted in HPI & below Physical Exam Physical Exam: GENERAL: A&Ox3. NAD. HEENT: PERRL, EOMI. Moist mucous membranes. NECK: No JVD. No lymphadenopathy. CHEST/LUNGS: CTAB A/P. No crackles, wheezes, rales, rhonchi. HEART: RRR. No m/g/r. No carotid bruits. ABDOMEN: NT/ND, soft. BS+ x4. EXTREMITIES: 3+ pitting edema up to mid thigh bilaterally. Left lower left leg with redness from ankle to half way up to the knee with exudate. SKIN: Warm and dry. No rashes or lesions. PSYCHIATRIC: Euthymic affect, no SI, no pressured speech, no hallucinations NEUROLOGIC: No FND. CN II-XII grossly intact. Results & Data Results & Data ([facility]) Vital Signs (Past 12 Hours) Vital Signs Temp Pulse Pulse Resp BP Pulse Ox O2 Del Method 03/21/22 21:24 76 03/21/22 22:31 99 H 03/22/22 03:48 36.8 C 99 H 20 159/70 H 96 Room Air 03/21/22 22:48 Room Air 03/21/22 22:48 36.4 C L 64 18 137/83 96 Room Air Resident Activity Tracking Resident Involvement: Resident Care Provided Care Provided: Adult Hospital Medicine (1) Atrial fibrillation Atrial fibrillation type: unspecified chronic Qualified Code(s): I48.20 - Chronic atrial fibrillation, unspecified (2) Hyperlipidemia Hyperlipidemia type: mixed hyperlipidemia Qualified Code(s): E78.2 - Mixed hyperlipidemia (3) Hypertension Hypertension type: essential hypertension Qualified Code(s): I10 - Essential (primary) hypertension
[2022-03-22 08:10] LABS: Basophils # (auto) 0.02 K/uL (0-0.2); Basophils % (auto) 0.3 %; Eosinophils # (auto) 0.29 K/uL (0-0.50); Eosinophils % (auto) 3.7 %; Hematocrit (blood only) 39.1 % (34.1-44.9); Hemoglobin 13.3 g/dl (12.0-16.0); Immature Granulocytes # (auto) 0.03 K/uL (0.00-0.02); Immature Granulocytes % (auto) 0.4 %; Lymphocytes # (auto) 1.43 K/uL (1.2-3.4); Lymphocytes % (auto) 18.4 %; Mean Corpuscular Hemoglobin 32.2 pg (25.0-34.0); Mean Corpuscular Volume 94.7 fL (80.0-100.0); Mean Platelet Volume 10.8 fL (9.4-12.3); Monocytes # (auto) 1.36 K/uL (0.24-0.82); Monocytes % (auto) 17.5 %; Neutrophils # (auto) 4.65 K/uL (1.4-6.5); Neutrophils % (auto) 59.7 %; Platelet Count 240 K/uL (130-400); RDW Coefficient of Variation 13.9 % (11.5-14.5); RDW Standard Deviation 48.3 fL (36.4-46.3); Red Blood Count 4.13 M/uL (3.93-5.22); White Blood Count 7.78 K/ul (4.8-10.8)
[2022-03-22 08:20] LABS: Prothrombin Time 20.1 Seconds (9.0-12.0)
[2022-03-22 08:29] LABS: Albumin Globulin Ratio 1.3 (0.9-2); Albumin Level 3.4 gm/dl (3.4-5.0); BUN Creatinine Ratio 25.6 (10-20); Bilirubin,Total 0.6 mg/dl (0.2-1.0); Calcium 8.6 mg/dl (8.5-10.1); Creatinine Clr Calc Pharmacy 56.9 ml/min; Est GFR (African American) 74.6 ml/min; Est GFR (Non-African American) 64.3 ml/min; Globulin 2.6 gm/dl (2.5-4.0); Magnesium 1.9 mg/dl (1.7-2.4); Potassium 3.8 mmol/L (3.5-5.1)
[2022-03-22] MEDS: FUROSEMIDE 40 MG/4 ML VIAL IV SCH ×2 (09:21→16:20)
[2022-03-22] MEDS: METOPROLOL SUCC 50MG EXT REL TAB PO SCH (09:22)
[2022-03-22] MEDS: LOSARTAN POTASSIUM 50 MG TAB PO SCH (09:22)
[2022-03-22] MEDS: amLODIPine BESYLATE 5 MG TAB PO SCH (09:22)
[2022-03-22] MEDS: POTASSIUM CHLORIDE 10 MEQ TABCR PO SCH (09:22)
--- NOTE | 2022-03-22 12:28 | Pharmacy Report ---
Pharmacy PK ABX Note - Date of Service March 22, 2022 - Assessment and Plan Assessment 86 year old F receiving vancomycin/Rocephin for treatment of cellulitis. Pertinent microbiologic data includes: N/A. Day # 1 of antimicrobial therapy. Plan Vancomycin * Loading dose: 2000 mg IV x 1 * Maintenance dose: 1000 mg IV every 18 hours * Regimen is predicted to achieve target AUC/EDWINA of 400-600 mg/L.hr * Random level ordered for: 03/23/22 Pharmacy will continue to follow and will adjust dose/frequency as necessary. Thank you. Pharmacy has transitioned to AUC monitoring for vancomycin. AUC/EDWINA is the preferred PK/PD target and is associated with decreased risk of nephrotoxicity compared to traditional trough targets.
[2022-03-22] MEDS ORDERED: WARFARIN SOD 2.5 MG TAB PO SCH (16:00)
[2022-03-22] MEDS ORDERED: VANCOMYCIN HCL 1,000 MG in SODIUM CHLORIDE 0.9% 250 ML IV SCH (18:00)
--- NOTE | 2022-03-22 18:57 | Billing Data ---
Date of Service March 22, 2022 Coding Level of Care Code 53632 Subseq Hosp Care Lvl 3
[2022-03-22] MEDS: ceFAZolin 2000MG 2,000 MG/15 ML SYR IV SCH (20:11)
[2022-03-22] MEDS: PRAVASTATIN SOD 40 MG TAB PO SCH (20:12)
[2022-03-23] MEDS: ACETAMINOPHEN 325 MG TAB PO PRN (01:01)
[2022-03-23] MEDS: ceFAZolin 2000MG 2,000 MG/15 ML SYR IV SCH ×2 (01:01→09:14)
[2022-03-23] MEDS: LEVOTHYROXINE SODIUM 150 MCG TABLET PO SCH (06:00)
--- NOTE | 2022-03-23 07:58 | Hospitalist Progress Note ---
Date of Service March 23, 2022 Assessment & Plan (1) Acute on chronic heart failure with preserved ejection fraction (HFpEF): (2) Lymphedema: (3) Hyperlipidemia: (4) Hypothyroidism: (5) Hypertension: (6) Atrial fibrillation: (7) Cellulitis of leg, left: Plan Lisseth Renae is an 86-year-old female with PMH of CHF, permanent afib, lymphedema, hypothyroidism who presented due to worsening swelling. Admitted for management of CHF exacerbation and left leg cellulitis. HFpEF (chronic) Last echo in September 2020 showing EF of 65 to 70%, grade 3 diastolic dysfunction - ECHO today showed - Given 3 doses of Lasix so far since yesterday. 100mg in total. - Patient is not fluid overloaded and is not having s/s of acute HF. Will stop Lasix at this time. Left leg cellulitis No sepsis, hemodynamically stable, no fevers - Nares MRSA negative - Wound cultures pending Stop Vanco and ceftriaxone - Start Cefazolin 2000mg q8 Atrial fibrillation Currently rate controlled Continue home metoprolol Continue home warfarin Monitor INR daily Hypertension Continue home losartan and amlodipine Hypothyroidism Continue home levothyroxine Hyperlipidemia Continue home pravastatin CODE STATUS: Full DVT prophylaxis: Anticoagulated on warfarin Diet: Heart healthy low-sodium Dispo: med telemetry Admission and Anticipated Discharge Date Admission Date: March 21, 2022 Physical Exam Physical Exam: GENERAL: A&Ox3. NAD. HEENT: PERRL, EOMI. Moist mucous membranes. NECK: No JVD. No lymphadenopathy. CHEST/LUNGS: CTAB A/P. No crackles, wheezes, rales, rhonchi. HEART: RRR. No m/g/r. No carotid bruits. ABDOMEN: NT/ND, soft. BS+ x4. EXTREMITIES: 3+ pitting edema up to mid thigh bilaterally. Left lower left leg with redness from ankle to half way up to the knee with exudate. SKIN: Warm and dry. No rashes or lesions. PSYCHIATRIC: Euthymic affect, no SI, no pressured speech, no hallucinations NEUROLOGIC: No FND. CN II-XII grossly intact. Results & Data Results & Data ([facility]) Vital Signs (Past 12 Hours) Vital Signs Temp Pulse Pulse Resp BP BP Pulse Ox 03/23/22 04:26 36.8 C 79 20 132/60 95 03/22/22:17 78 03/23/22 00:10 03/22/22 22:00 36.4 C L 94 H 20 141/76 H 93 03/22/22 20:02 36.5 C 89 20 131/72 95 O2 Del Method 03/23/22 04:26 Room Air 03/22/22 22:17 03/23/22 00:10 Room Air 03/22/22 22:00 Room Air 03/22/22 20:02 Room Air (1) Atrial fibrillation Atrial fibrillation type: unspecified chronic Qualified Code(s): I48.20 - Chronic atrial fibrillation, unspecified (2) Hyperlipidemia Hyperlipidemia type: mixed hyperlipidemia Qualified Code(s): E78.2 - Mixed hyperlipidemia (3) Hypertension Hypertension type: essential hypertension Qualified Code(s): I10 - Essential (primary) hypertension
[2022-03-23 08:27] LABS: Basophils # (auto) 0.03 K/uL (0-0.2); Basophils % (auto) 0.4 %; Eosinophils # (auto) 0.33 K/uL (0-0.50); Eosinophils % (auto) 4.1 %; Hematocrit (blood only) 40.5 % (34.1-44.9); Hemoglobin 13.4 g/dl (12.0-16.0); Immature Granulocytes # (auto) 0.03 K/uL (0.00-0.02); Immature Granulocytes % (auto) 0.4 %; Lymphocytes # (auto) 1.24 K/uL (1.2-3.4); Lymphocytes % (auto) 15.3 %; Mean Corpuscular Hemoglobin 32.6 pg (25.0-34.0); Mean Corpuscular Hgb Conc 33.1 g/dL (32.0-36.0); Mean Corpuscular Volume 98.5 fL (80.0-100.0); Mean Platelet Volume 10.8 fL (9.4-12.3); Monocytes # (auto) 1.56 K/uL (0.24-0.82); Monocytes % (auto) 19.2 %; Neutrophils # (auto) 4.92 K/uL (1.4-6.5); Neutrophils % (auto) 60.6 %; Platelet Count 237 K/uL (130-400); RDW Coefficient of Variation 14.2 % (11.5-14.5); RDW Standard Deviation 51.4 fL (36.4-46.3); Red Blood Count 4.11 M/uL (3.93-5.22); White Blood Count 8.11 K/ul (4.8-10.8)
[2022-03-23 08:47] LABS: Prothrombin Time 20.4 Seconds (9.0-12.0)
[2022-03-23 08:57] LABS: Albumin Globulin Ratio 1.2 (0.9-2); Albumin Level 3.4 gm/dl (3.4-5.0); BUN Creatinine Ratio 23.8 (10-20); Bilirubin,Total 0.5 mg/dl (0.2-1.0); Calcium 9.2 mg/dl (8.5-10.1); Creatinine Clr Calc Pharmacy 58.5 ml/min; Est GFR (African American) 76.8 ml/min; Est GFR (Non-African American) 66.3 ml/min; Globulin 2.8 gm/dl (2.5-4.0); Potassium 3.7 mmol/L (3.5-5.1); Total Protein 6.2 gm/dl (6.0-8.3)
[2022-03-23] MEDS: amLODIPine BESYLATE 5 MG TAB PO SCH (09:04)
[2022-03-23] MEDS: METOPROLOL SUCC 50MG EXT REL TAB PO SCH (09:05)
[2022-03-23] MEDS: POTASSIUM CHLORIDE 10 MEQ TABCR PO SCH (09:05)
[2022-03-23] MEDS: LOSARTAN POTASSIUM 50 MG TAB PO SCH (09:05)
[2022-03-23] MEDS ORDERED: cephALEXin 500 MG CAP PO SCH (13:00)
--- NOTE | 2022-03-23 18:12 | Billing Data ---
Date of Service March 23, 2022 Coding Level of Care Code D/C DAY MANAGEMENT <30 MINS
--- NOTE | 2022-03-23 23:43 | Discharge Summary ---
Date of Service March 23, 2022 Admission HPI Per Admitting Provider Lisseth Renae is an 86-year-old female with PMH of CHF, permanent afib, lymphedema, hypothyroidism who presented due to worsening swelling. Patient states that she has noticed her legs are more swollen but denies s hortness of breath. Her daughter is at bedside who states that patient has had worsening swelling over the past month. Daughter has tried on multiple occasions to convince patient to follow up with [facility], whom she sees as an outpatient. However, patient has refused and preferred to f/u with her PCP -- daughter did state that they were in the process of transitioning care to [facility] with Dr. Carvajal whom she sees for vascular care, had appt later this month. She has been instructed by Cardiology in the past, and PCP more recently, to add torsemide 10mg in the afternoons on top of her torsemide 20mg daily in AM when she seems more swollen. Patient had a PT appointment today for lymphedema and her therapist recommended she come in due to significant swelling and her toes looking discolored. The patient's daughter is also concerned patient has cellulitis, as her left leg has gotten very red within the past 2 weeks and has started seeping some fluid. She does state the patient scratches her leg often. She has had no f/c, SOB, cough, n/v, abd pain, CP, palp. In the ED had CXR showing pulmonary vascular congestion, labs with BNP of 104, therapeutic INR, normal blood counts, normal electrolytes, normal troponin. EKG showed rate controlled atrial fibrillation with no signs of new ischemia. She received Lasix 20 mg IV x1. Admission Exam Per Admitting Provider GENERAL: A&Ox3. NAD. HEENT: PERRL, EOMI. Moist mucous membranes. NECK: No JVD. No lymphadenopathy. CHEST/LUNGS: CTAB A/P. No crackles, wheezes, rales, rhonchi. HEART: RRR. No m/g/r. No carotid bruits. ABDOMEN: NT/ND, soft. BS+ x4. EXTREMITIES: 3+ pitting edema up to mid thigh bilaterally. Left lower left leg with redness from ankle to 1 inch below knee with exudate. SKIN: Warm and dry. No rashes or lesions. PSYCHIATRIC: Euthymic affect, no SI, no pressured speech, no hallucinations NEUROLOGIC: No FND. CN II-XII grossly intact. Principal Diagnosis Left lower extremity cellulitis Discharge Exam GENERAL: A&Ox3. NAD. HEENT: PERRL, EOMI. Moist mucous membranes. NECK: No JVD. No lymphadenopathy. CHEST/LUNGS: CTAB A/P. No crackles, wheezes, rales, rhonchi. HEART: RRR. No m/g/r. No carotid bruits. ABDOMEN: NT/ND, soft. BS+ x4. EXTREMITIES: 3+ pitting edema up to mid thigh bilaterally. Left lower left leg with redness from ankle to half way up the crenshaw with exudate. SKIN: Warm and dry. No rashes or lesions. PSYCHIATRIC: Euthymic affect, no SI, no pressured speech, no hallucinations NEUROLOGIC: No FND. CN II-XII grossly intact. Discharge Data Allergies Allergy/AdvReac Type Severity Reaction Status Date / Time No Known Allergies Allergy Verified 03/21/22 16:17 Consultations 03/21/22 15:15 ED Decision to Admit Stat Hospital Course (1) Acute on chronic heart failure with preserved ejection fraction (HFpEF): Lisseth Renae is an 86-year-old female with PMH of CHF, permanent afib, lymphedema, hypothyroidism who presented due to worsening swelling. Admitted for management of CHF exacerbation and left leg cellulitis. Acute on chronic HFpEF Last echo in September 2020 showing EF of 65 to 70%, grade 3 diastolic dysfunction consistent with restrictive physiology, moderate aortic valve sclerosis without significant stenosis, moderate aortic regurg, mild mitral regurg, moderate tricuspid regurg, mild left atrial enlargement, PA systolic pressure of 36 mmHg assuming a right atrial pressure of 8 mmHg. Will need to ensure good rate and blood pressure control going forward for adequate control of her HFpEF Give additional Lasix 40 mg IV today, continue twice daily thereafter Repeat echo BMP in a.m. to monitor kidney function Daily weights, monitor I's and O's Left leg cellulitis No sepsis, hemodynamically stable, no fevers Cover MRSA and Strep with IV Vanco Will treat with ceftriaxone as well for gram neg coverage Atrial fibrillation Currently rate controlled Continue home metoprolol Continue home warfarin Monitor INR daily Hypertension Continue home losartan and amlodipine Hypothyroidism Continue home levothyroxine -check TSH in AM Hyperlipidemia Continue home pravastatin CODE STATUS: Full DVT prophylaxis: Anticoagulated on warfarin Diet: Heart healthy low-sodium Dispo: Admit to med telemetry (2) Lymphedema: (3) Hyperlipidemia: (4) Hypothyroidism: (5) Hypertension: (6) Atrial fibrillation: (7) Cellulitis of leg, left: Plan Lisseth Renae is an 86-year-old female with PMH of CHF, permanent afib, lymphedema, hypothyroidism who was treated for L leg cellulitis. She was first put on IV Vancomycin and ceftriaxone. ECHO was performed and there was no change from previous ECHO. She had a negative nasal MRSA PCR. She was switched to cefazolin and then PO Keflex. Patient's cellulites improved during admission, although significant swelling was still apparent most likely due to venous stasis. Patient was instructed to use compression stockings, leg elevation, movement, and leg messaging. She was instructed to f/u with her PCP and [facility] for further chronic care. She was instructed to take Keflex QID for 7 more days and to return to the hospital if any worsening symptoms occurred. Patient should be able to participate in all previous activities including all physical therapy and lymphedema therapy. At time of discharge patient's vitals were normal and had no had a WBC of 8.11. Total Time Total Time Spent Total Time Spent (In Minutes): 60 Total Time Includes: Examination of the Patient, Discharge Planning and Medication Reconciliation Discharge Plan Discharge Items Patient Disposition: Home - Self-Care Reason For Visit: CHF EXACERBATION Discharge Diagnosis: Left lower extremity cellulitis Activity: Per Instructions section Non-emergency contact: Primary Care Provider Call non-emergency contact if: you have any medication questions and your symptoms worsen Follow-up/Referrals: Lovely العلي [Primary Care Provider] - (PLEASE CALL YOUR PRIMARY CARE PROVIDER TO SCHEDULE A DISCHARGE FOLLOW-UP APPOINTMENT WITHIN 7-10 DAYS.) Diet: Heart Healthy Addtl Attending Provider Instructions: You were admitted to [facility] due to significant swelling in both of your legs. You were treated for a cellulitis (skin infection) of your left leg. Initially, you were treated with intravenous antibiotics. As you improved appropriately, we transitioned you to oral antibiotics. We will order these to your preferred pharmacy and you should continue to take them until treatment is completed. Additionally, as discussed, we believe that much of your leg swelling on both sides is due to venous stasis, or poor circulation in the legs. Compression stockings, leg elevation, movement, and leg messaging may be helpful to curb the effects of this. Chronic leg swelling is more likely to lead to small breaks in the skin of the legs that may predispose you to having more future episodes of infections of the skin. As such, we recommend that you be very diligent about avoiding excessive swelling. Please follow-up with your primary care provider and [facility] for further chronic care. Return to the hospital if you have any worsening symptoms such as fever, chills, worsening redness, pain, purulence of your legs, or any other severe concerning symptoms. After hospital discharge, Mrs. Renae should be able to participate in all previous activities including all physical therapy and lymphedema therapy. Pending Studies at Discharge: No Stand-Alone Forms: [facility], Smoking Cessation Medications and DC Order Prescriptions: New cephalexin 500 mg Capsule 500 mg PO QID 7 Days Qty: 28 0RF Continued lorazepam [Ativan] 0.5 mg tablet 0.5 mg PO .COMPLEX Qty: 1 0RF Rx Instructions: 0.5 mg PO 1 HOUR PRIOR TO PROCEDURE; warfarin 2.5 mg Tablet See Rx Instructions .ROUTE .COMPLEX Rx Instructions: 2.5 mg orally; TAKES 2.5 MG ON SUN, TUES, THURS, FRI., THEN 1.25 MG ON MON, WED, & SAT. levothyroxine 150 mcg Tablet 150 mcg PO DAILY pravastatin 40 mg Tablet 40 mg PO HS losartan 100 mg Tablet 100 mg PO DAILY metoprolol succinate 50 mg Tablet Extended Release 24 Hr 50 mg PO QAM Qty: 30 0RF torsemide 20 mg tablet See Rx Instructions .ROUTE .COMPLEX Rx Instructions: 20 mg ORALLY; TAKES 20 MG QAM, THEN 10 MG QDD. amlodipine 2.5 mg tablet 2.5 mg PO QAM potassium chloride 10 mEq tablet extended release 10 meq PO QAM Discharge Orders: Discharge Order (Routine); Ordered 03/23/22 Ordered By: Evin Bassett Admission Data Admit Date/Time: 03/21/22 16:08 Attending Provider: Brad Gutierrez Admit Provider: Evin Bassett Primary Care Provider: Lovely العلي Other Providers: Silvia Lowery Other Interventions: Discharge Summary Assessment (RN) Last Done: 03/23/22 14:21 Supervising Physician Co-Signing Physician Notes I personally examined the patient and verified all richards points of history and exam, discussed case, and agree with decision making with Dr Rosenthal. Leg feeling better. feels up to going home. dtr feels comfortable taking her home Vitals noted, in general she is awake and alert pleasant no distress. HEENT no rmocephalic atraumatic mucous membranes moist. Breathing unlabored no accessory muscle use good effort. Skin shows left lower extremity erythema from about the mid crenshaw down to the ankle with a few small pustules, mildly erythematous mildly tendersimilar size, less erythema/red/intense than yesterday Left leg cellulitis Transitioned to cefazolinimproving home on keflex. Never sepsis/septic shock, MRSA nares negativeoverall low likelihood of resistant bacteria. HFpEF (chronic) Last echo in September 2020 showing EF of 65 to 70%, grade 3 diastolic dysfunction -Appears to been treated and resolved Atrial fibrillation Rate controlled, anticoagulated Hypertension Continue home losartan and amlodipine Hypothyroidism Continue home levothyroxine Hyperlipidemia Continue home pravastatin Otherwise as above Resident Activity Tracking Resident Involvement: Resident Care Provided Care Provided: Adult Hospital Medicine
== END 2022-03-23 15:20 | disposition home or self-care (01) | DRG 291 ==
LOC: ED 12:22 → 2W 16:08 → SUATTDRO 16:08 → 2W 20:27
DX: E03.9 Hypothyroidism, unspecified; I11.0 Hypertensive heart disease with heart failure; I48.21 Permanent atrial fibrillation; I50.33 Acute on chronic diastolic (congestive) heart failure; Z87.891 Personal history of nicotine dependence; Z79.890 Hormone replacement therapy; E78.5 Hyperlipidemia, unspecified; L03.116 Cellulitis of left lower limb; Z79.01 Long term (current) use of anticoagulants; I08.3 Combined rheumatic disorders of mitral, aortic and tricuspid valves